=== PATIENT | female | born 1990 | race Caucasian/White ===

== ENCOUNTER 2018-05-23 13:44 | Inpatient (IN) | payer MEDICARE ==
[~2018-05-23] VITALS: Ht 157.5 cm; Wt 66.7 kg
[~2018-05-23 13:44] MED LIST: ARIP10TA8 PO; VENL-68 PO
[2018-05-23 15:04] VITALS: BP 103/66
[2018-05-23] MEDS ORDERED: DIVA-78 PO (16:22)
[2018-05-23] MEDS ORDERED: SERT50TA12 PO (16:22)
[2018-05-23 17:32] VITALS: BP 133/95
[2018-05-23] MEDS ORDERED: GuaiFENesin/D-METHORPHAN [SUGAR-FREE] 200-20MG/10 ML SYRUP UDCUP PO PRN (19:30)
[2018-05-23] MEDS ORDERED: MAG HYDROX/AL HYDROX/SIMETH ES 30 ML SUSPENSION UDCUP PO PRN (19:30)
[2018-05-23] MEDS ORDERED: ONDANSETRON HCL 4 MG TABLET PO PRN (19:30)
[2018-05-23] MEDS ORDERED: ACETAMINOPHEN 325 MG TABLET PO PRN (19:30)
[2018-05-23] MEDS ORDERED: LOPERAMIDE HCL 2 MG CAPSULE PO PRN (19:30)
[2018-05-23] MEDS ORDERED: DOCUSATE SODIUM 100 MG CAPSULE PO PRN (19:30)
[2018-05-23] MEDS ORDERED: MAGNESIUM HYDROXIDE SUSPENSION 30 ML UDCUP PO PRN (19:30)
[2018-05-23] MEDS ORDERED: CloNIDine HCL 0.1 MG TABLET PO PRN (19:30)
[2018-05-23] MEDS ORDERED: ALBUTEROL SULFATE HFA 90 MCG/PUFF 8 GM INHALER IH PRN (19:30)
[2018-05-23] MEDS ORDERED: PETROLATUM,WHITE 71 GM JELLY TP PRN (19:30)
[2018-05-23] MEDS ORDERED: IBUPROFEN 400 MG TABLET PO PRN (19:30)
[2018-05-23] MEDS ORDERED: DIVALPROEX SODIUM 500 MG DR TABLET PO SCH (21:00)
[2018-05-24 05:15] VITALS: BP 103/70
[2018-05-24 08:34] LABS: BASOPHILS % (AUTO) 0.8 % (0.0-2.0); EOSINOPHILS % (AUTO) 4.8 % (1.0-6.0); HEMATOCRIT 36.1 % (36-46); HEMOGLOBIN 12.4 g/dL (12.0-16.0); LYMPHOCYTES # (AUTO) 1.6 K/uL (1.0-4.8); LYMPHOCYTES % (AUTO) 30.1 % (22.0-44.0); MEAN CORPUSCULAR HEMOGLOBIN 29.9 pg (26.0-34.0); MEAN CORPUSCULAR HGB CONC 34.3 G/dL (31.0-37.0); MEAN CORPUSCULAR VOLUME 87 fL (80-100); MONOCYTES # (AUTO) 0.3 K/uL (0.1-1.0); NEUTROPHILS # (AUTO) 3.1 K/uL (1.8-7.7); NEUTROPHILS % (AUTO) 59.3 % (40.0-70.0); PLATELET COUNT (AUTO) 248 K/uL (150-450); RED BLOOD CELL COUNT(AUTO) 4.14 MIL/uL (4.00-5.20); RED CELL DISTRIBUTION WIDTH 12.3 % (11.5-14.5)
[2018-05-24 08:48] LABS: AMPHET/METH SCREEN,URINE NEGATIVE (NEGATIVE); BARBITURATE SCREEN, URINE NEGATIVE (NEGATIVE); BENZODIAZEPINES SCREEN,URINE NEGATIVE (NEGATIVE); CANNABINOID SCREEN,URINE NEGATIVE (NEGATIVE); COCAINE SCREEN,URINE NEGATIVE (NEGATIVE); METHADONE SCREEN, URINE NEGATIVE (NEGATIVE); OPIATE SCREEN,URINE NEGATIVE (NEGATIVE)
[2018-05-24 08:50] LABS: PHENCYCLIDINE SCREEN,URINE NEGATIVE (NEGATIVE)
[2018-05-24 08:53] LABS: APPEARANCE,URINE CLEAR (CLEAR); BILIRUBIN,URINE NEGATIVE (NEGATIVE); GLUCOSE, URINE (UA) NEGATIVE (NEGATIVE); KETONES,URINE NEGATIVE (NEGATIVE); LEUKOCYTE ESTERASE ,URINE NEGATIVE (NEGATIVE); NITRATE,URINE NEGATIVE (NEGATIVE); OCCULT BLOOD,URINE LARGE (NEGATIVE); PROTEIN,URINE NEGATIVE (NEGATIVE); UROBILINOGEN,URINE 0.2 mg/dL (<=1.0)
[2018-05-24 09:00] LABS: ALANINE AMINOTRANSFERASE 18 U/L (12-78); ALBUMIN 3.7 g/dL (3.4-5.0); ALKALINE PHOSPHATASE 59 U/L (46-116); ANION GAP 6 mmol/L (8-16); ASPARTATE AMINOTRANSFERASE 15 U/L (15-37); BILIRUBIN,TOTAL 0.4 mg/dL (0.1-1.0); CALCIUM, TOTAL 8.6 mg/dL (8.8-10.5); CARBON DIOXIDE 30 mmol/L (22-29); CHLORIDE 107 mmol/L (98-107); CHOL/HDL RATIO 2.8 (3.9-5.7); CHOLESTEROL 185 mg/dL (131-200); CREATININE 0.69 mg/dL (0.60-1.30); FREE T4 (FREE THYROXINE) 0.84 ng/dL (0.76-1.46); GLOMERULAR FILTR. RATE CALC > 60 mL/min (>60); GLUCOSE,RANDOM 81 mg/dL (70-110); HDL CHOLESTEROL 67 mg/dL (40-60); LDL CHOL (CALC.) 102 mg/dL (0-130); POTASSIUM 4.6 mmol/L (3.5-5.1); SODIUM SERUM 143 mmol/L (136-145); THYROID STIMULATING HORMONE 1.96 uIU/mL (0.36-3.74); TOTAL PROTEIN, SERUM 6.7 g/dL (6.4-8.2); TRIGLYCERIDES 80 mg/dL (15-150); UREA NITROGEN, BLOOD 11 mg/dL (7-18)
[2018-05-24 09:07] LABS: BACTERIA,URINE Rare /HPF (None Seen); SQUAMOUS EPITHELIAL CELL,UR Few /LPF (None Seen); WBC,URINE 0-2 /HPF (0-5)
[2018-05-24] MEDS: SERTRALINE HCL 50 MG TABLET PO SCH (09:38)
[2018-05-24] MEDS ORDERED: DIVALPROEX SODIUM 500 MG DR TABLET PO ONE (10:15)
[2018-05-24 16:39] VITALS: BP 111/72
[2018-05-24] MEDS: DIVALPROEX SODIUM 500 MG DR TABLET PO SCH (20:53)
[2018-05-25 06:40] VITALS: BP 121/76
[2018-05-25 08:20] VITALS: BP 100/57
[2018-05-25] MEDS: DIVALPROEX SODIUM 500 MG DR TABLET PO SCH ×2 (09:13→20:38)
[2018-05-25] MEDS: SERTRALINE HCL 50 MG TABLET PO SCH (09:14)
[2018-05-25 16:12] VITALS: BP 119/61
[2018-05-26 05:40] VITALS: BP 117/65
[2018-05-26 08:19] VITALS: BP 105/72
[2018-05-26] MEDS: DIVALPROEX SODIUM 500 MG DR TABLET PO SCH ×2 (08:42→21:06)
[2018-05-26] MEDS: SERTRALINE HCL 50 MG TABLET PO SCH (08:43)
[2018-05-26 16:11] VITALS: BP 109/69
[2018-05-27 04:57] VITALS: BP 112/74
[2018-05-27 08:15] VITALS: BP 121/78
[2018-05-27] MEDS: SERTRALINE HCL 50 MG TABLET PO SCH (09:19)
[2018-05-27] MEDS: DIVALPROEX SODIUM 500 MG DR TABLET PO SCH ×2 (09:20→21:43)
[2018-05-27 18:42] VITALS: BP 120/69
[2018-05-28 07:10] VITALS: BP 125/76
[2018-05-28 08:23] VITALS: BP 112/64
[2018-05-28] MEDS: DIVALPROEX SODIUM 500 MG DR TABLET PO SCH ×2 (09:03→21:35)
[2018-05-28] MEDS: SERTRALINE HCL 50 MG TABLET PO SCH (09:03)
[2018-05-28 18:09] VITALS: BP 117/73
[2018-05-29 07:03] VITALS: BP 125/72
[2018-05-29 08:24] VITALS: BP 123/81
[2018-05-29] MEDS: DIVALPROEX SODIUM 500 MG DR TABLET PO SCH ×2 (08:48→20:33)
[2018-05-29] MEDS: SERTRALINE HCL 50 MG TABLET PO SCH (08:48)
[2018-05-29 16:23] VITALS: BP 119/70
[2018-05-30 05:09] VITALS: BP 116/72
[2018-05-30 08:11] VITALS: BP 118/71
[2018-05-30] MEDS: DIVALPROEX SODIUM 500 MG DR TABLET PO SCH ×2 (08:40→20:01)
[2018-05-30] MEDS: SERTRALINE HCL 50 MG TABLET PO SCH (08:41)
[2018-05-30 16:12] VITALS: BP 122/73
[2018-05-31 06:22] VITALS: BP 109/68
[2018-05-31 08:16] VITALS: BP 116/79
[2018-05-31] MEDS: SERTRALINE HCL 50 MG TABLET PO SCH (09:02)
[2018-05-31] MEDS: DIVALPROEX SODIUM 500 MG DR TABLET PO SCH ×2 (09:02→20:33)
[2018-05-31 16:34] VITALS: BP 109/74
[2018-06-01 04:30] VITALS: BP 132/91
[2018-06-01 08:26] VITALS: BP 105/60
[2018-06-01] MEDS: DIVALPROEX SODIUM 500 MG DR TABLET PO SCH ×2 (08:49→20:21)
[2018-06-01] MEDS: SERTRALINE HCL 50 MG TABLET PO SCH (08:49)
[2018-06-01 16:16] VITALS: BP 114/71
[2018-06-02 06:24] VITALS: BP 110/68
[2018-06-02 08:23] VITALS: BP 109/59
[2018-06-02] MEDS: SERTRALINE HCL 50 MG TABLET PO SCH (08:32)
[2018-06-02] MEDS: DIVALPROEX SODIUM 500 MG DR TABLET PO SCH ×2 (08:32→21:23)
[2018-06-02 16:08] VITALS: BP 110/64
[2018-06-02] MEDS: LORazepam 2 MG TABLET PO PRN (17:51)
[2018-06-02] MEDS: HALOPERIDOL 5 MG TABLET PO PRN (17:51)
[2018-06-02] MEDS: ZOLPIDEM TARTRATE 10 MG TABLET PO PRN (21:23)
[2018-06-03 06:13] VITALS: BP 117/62
[2018-06-03 08:23] VITALS: BP 103/67
[2018-06-03] MEDS: DIVALPROEX SODIUM 500 MG DR TABLET PO SCH ×2 (08:54→20:37)
[2018-06-03] MEDS: SERTRALINE HCL 50 MG TABLET PO SCH (08:54)
[2018-06-03] MEDS: LORazepam 2 MG TABLET PO PRN ×2 (08:54→17:05)
[2018-06-03 17:23] VITALS: BP 121/76
[2018-06-03] MEDS: ZOLPIDEM TARTRATE 10 MG TABLET PO PRN (20:43)
[2018-06-04 06:28] VITALS: BP 110/76
[2018-06-04 08:21] VITALS: BP 101/66
[2018-06-04] MEDS: SERTRALINE HCL 50 MG TABLET PO SCH (09:13)
[2018-06-04] MEDS: DIVALPROEX SODIUM 500 MG DR TABLET PO SCH ×2 (09:13→21:02)
[2018-06-04] MEDS: LORazepam 2 MG TABLET PO PRN (09:13)
[2018-06-04] MEDS: HALOPERIDOL 5 MG TABLET PO PRN (09:13)
[2018-06-04] MEDS ORDERED: SERT50TA12 PO (13:21)
[2018-06-04] MEDS ORDERED: DIVA-78 PO (13:21)
[2018-06-04 16:30] VITALS: BP 111/71
[2018-06-05 00:46] VITALS: BP 102/62
[2018-06-05 08:14] VITALS: BP 121/79
[2018-06-05] MEDS: DIVALPROEX SODIUM 500 MG DR TABLET PO SCH (08:26)
[2018-06-05] MEDS: SERTRALINE HCL 50 MG TABLET PO SCH (08:26)
[2018-06-05] MEDS: LORazepam 2 MG TABLET PO PRN (08:30)
== END 2018-06-05 10:25 | disposition home or self-care (01) | DRG 885 ==
LOC: B3A 15:23
PROVIDERS: ADMIT Psychiatry & Neurology Child & Adolescent Psychiatry; ATTEND Psychiatry & Neurology Child & Adolescent Psychiatry
DX: F25.0 Schizoaffective disorder, bipolar type (principal); Z28.21 Immunization not carried out because of patient refusal; Z87.820 Personal history of traumatic brain injury; G40.909 Epilepsy, unspecified, not intractable, without status epilepticus; E66.9 Obesity, unspecified; G47.00 Insomnia, unspecified; F41.9 Anxiety disorder, unspecified; Z91.14 Patient's other noncompliance with medication regimen
CPT/HCPCS: 80307; 83036; 84439; 84443

== ENCOUNTER 2018-10-04 16:53 | Inpatient (IN) | payer MEDICARE, MEDICAID ==
[~2018-10-04] VITALS: Ht 157.5 cm; Wt 75.1 kg
[~2018-10-04 16:53] MED LIST changes: -ARIP10TA8 PO; +DIVA-78 PO; +SERT50TA12 PO; -VENL-68 PO
[2018-10-04 18:03] VITALS: BP 115/77
[2018-10-04] MEDS ORDERED: LORazepam 2 MG TABLET PO PRN (18:45)
[2018-10-04] MEDS ORDERED: ZOLPIDEM TARTRATE 10 MG TABLET PO PRN (18:45)
[2018-10-04] MEDS ORDERED: HALOPERIDOL 5 MG TABLET PO PRN (18:45)
[2018-10-04 19:19] VITALS: BP 117/63
[2018-10-04] MEDS ORDERED: LOPERAMIDE HCL 2 MG CAPSULE PO PRN (20:00)
[2018-10-04] MEDS ORDERED: ACETAMINOPHEN 325 MG TABLET PO PRN (20:00)
[2018-10-04] MEDS ORDERED: CloNIDine HCL 0.1 MG TABLET PO PRN (20:00)
[2018-10-04] MEDS ORDERED: IBUPROFEN 400 MG TABLET PO PRN (20:00)
[2018-10-04] MEDS ORDERED: PETROLATUM,WHITE 28 GM JELLY TP PRN (20:00)
[2018-10-04] MEDS ORDERED: GuaiFENesin/D-METHORPHAN [SUGAR-FREE] 200-20MG/10 ML SYRUP UDCUP PO PRN (20:00)
[2018-10-04] MEDS ORDERED: NICOTINE 14 MG/24 HOUR PATCH TD PRN (20:00)
[2018-10-04] MEDS ORDERED: ALBUTEROL SULFATE HFA 90 MCG/PUFF 8 GM INHALER IH PRN (20:00)
[2018-10-04] MEDS ORDERED: MAGNESIUM HYDROXIDE SUSPENSION 30 ML UDCUP PO PRN (20:00)
[2018-10-04] MEDS ORDERED: MAG HYDROX/AL HYDROX/SIMETH ES 30 ML SUSPENSION UDCUP PO PRN (20:00)
[2018-10-04] MEDS ORDERED: ONDANSETRON HCL 4 MG TABLET PO PRN (20:00)
[2018-10-04] MEDS ORDERED: DOCUSATE SODIUM 100 MG CAPSULE PO PRN (20:00)
[2018-10-05 06:06] VITALS: BP 108/78
[2018-10-05 07:07] LABS: BASOPHILS % (AUTO) 0.7 % (0.0-2.0); EOSINOPHILS % (AUTO) 6.9 % (1.0-6.0); HEMATOCRIT 36.2 % (36-46); HEMOGLOBIN 11.8 g/dL (12.0-16.0); LYMPHOCYTES # (AUTO) 2.3 K/uL (1.0-4.8); LYMPHOCYTES % (AUTO) 39.6 % (22.0-44.0); MEAN CORPUSCULAR HEMOGLOBIN 27.7 pg (26.0-34.0); MEAN CORPUSCULAR HGB CONC 32.6 G/dL (31.0-37.0); MEAN CORPUSCULAR VOLUME 85 fL (80-100); MONOCYTES # (AUTO) 0.3 K/uL (0.1-1.0); MONOCYTES % (AUTO) 5.2 % (2.0-9.0); NEUTROPHILS # (AUTO) 2.8 K/uL (1.8-7.7); NEUTROPHILS % (AUTO) 47.6 % (40.0-70.0); PLATELET COUNT (AUTO) 244 K/uL (150-450); RED BLOOD CELL COUNT(AUTO) 4.26 MIL/uL (4.00-5.20); RED CELL DISTRIBUTION WIDTH 12.6 % (11.5-14.5)
[2018-10-05 08:06] VITALS: BP 108/64
[2018-10-05 08:06] LABS: ALANINE AMINOTRANSFERASE 14 U/L (12-78); ALBUMIN 3.3 g/dL (3.4-5.0); ALKALINE PHOSPHATASE 70 U/L (46-116); ANION GAP 10 mmol/L (8-16); ASPARTATE AMINOTRANSFERASE 13 U/L (15-37); BILIRUBIN,TOTAL 0.3 mg/dL (0.1-1.0); CALCIUM, TOTAL 8.9 mg/dL (8.8-10.5); CARBON DIOXIDE 26 mmol/L (22-29); CHLORIDE 105 mmol/L (98-107); CHOL/HDL RATIO 2.9 (3.9-5.7); CHOLESTEROL 175 mg/dL (131-200); FREE T4 (FREE THYROXINE) 0.76 ng/dL (0.76-1.46); GLOMERULAR FILTR. RATE CALC > 60 mL/min (>60); GLUCOSE,RANDOM 80 mg/dL (70-110); HCG,QUANTITATIVE < 1 mIU/mL (0-6); HDL CHOLESTEROL 60 mg/dL (40-60); LDL CHOL (CALC.) 95 mg/dL (0-130); POTASSIUM 4.3 mmol/L (3.5-5.1); SODIUM SERUM 141 mmol/L (136-145); THYROID STIMULATING HORMONE 1.41 uIU/mL (0.36-3.74); TOTAL PROTEIN, SERUM 6.2 g/dL (6.4-8.2); TRIGLYCERIDES 98 mg/dL (15-150); UREA NITROGEN, BLOOD 10 mg/dL (7-18)
[2018-10-05 08:07] LABS: VALPROIC ACID < 3 mcg/mL (50-100)
[2018-10-05] MEDS: SERTRALINE HCL 100 MG TABLET PO SCH (08:50)
[2018-10-05] MEDS: DIVALPROEX SODIUM 500 MG ER TABLET PO SCH ×2 (08:50→16:42)
[2018-10-05 16:07] VITALS: BP 123/69
[2018-10-06 05:10] VITALS: BP 120/72
[2018-10-06 08:13] LABS: AMPHET/METH SCREEN,URINE NEGATIVE (NEGATIVE); BARBITURATE SCREEN, URINE NEGATIVE (NEGATIVE); BENZODIAZEPINES SCREEN,URINE NEGATIVE (NEGATIVE); CANNABINOID SCREEN,URINE NEGATIVE (NEGATIVE); COCAINE SCREEN,URINE NEGATIVE (NEGATIVE); METHADONE SCREEN, URINE NEGATIVE (NEGATIVE); OPIATE SCREEN,URINE NEGATIVE (NEGATIVE)
[2018-10-06 08:18] VITALS: BP 119/68
[2018-10-06 08:30] LABS: PHENCYCLIDINE SCREEN,URINE NEGATIVE (NEGATIVE)
[2018-10-06 08:40] LABS: APPEARANCE,URINE CLEAR (CLEAR); BILIRUBIN,URINE NEGATIVE (NEGATIVE); GLUCOSE, URINE (UA) NEGATIVE (NEGATIVE); KETONES,URINE NEGATIVE (NEGATIVE); LEUKOCYTE ESTERASE ,URINE SMALL (NEGATIVE); NITRATE,URINE NEGATIVE (NEGATIVE); OCCULT BLOOD,URINE NEGATIVE (NEGATIVE); PROTEIN,URINE NEGATIVE (NEGATIVE); UROBILINOGEN,URINE 0.2 mg/dL (<=1.0)
[2018-10-06] MEDS: SERTRALINE HCL 100 MG TABLET PO SCH (08:50)
[2018-10-06] MEDS: DIVALPROEX SODIUM 500 MG ER TABLET PO SCH ×2 (08:50→16:16)
[2018-10-06 09:03] LABS: BACTERIA,URINE Rare /HPF (None Seen); CALCIUM OXALATE CRYSTALS,UR Moderate /LPF (None Seen); RBC,URINE None Seen /HPF (0-2); SQUAMOUS EPITHELIAL CELL,UR Rare /LPF (None Seen); WBC,URINE 0-2 /HPF (0-5)
[2018-10-06 16:03] VITALS: BP 107/65
[2018-10-07 08:13] VITALS: BP 105/60
[2018-10-07] MEDS: DIVALPROEX SODIUM 500 MG ER TABLET PO SCH ×2 (08:31→16:32)
[2018-10-07] MEDS: SERTRALINE HCL 100 MG TABLET PO SCH (08:31)
[2018-10-07 16:07] VITALS: BP 112/60
[2018-10-08 00:29] VITALS: BP 102/60
[2018-10-08 08:20] VITALS: BP 109/75
[2018-10-08] MEDS: DIVALPROEX SODIUM 500 MG ER TABLET PO SCH ×2 (08:26→16:29)
[2018-10-08] MEDS: SERTRALINE HCL 100 MG TABLET PO SCH (08:26)
[2018-10-08 16:12] VITALS: BP 110/75
[2018-10-09 00:10] VITALS: BP 107/69
[2018-10-09 08:15] VITALS: BP_SYST 109; BP_DIAS 6; BP_DIAS 68
[2018-10-09] MEDS: SERTRALINE HCL 100 MG TABLET PO SCH (08:22)
[2018-10-09] MEDS: DIVALPROEX SODIUM 500 MG ER TABLET PO SCH ×2 (08:22→16:33)
[2018-10-09] MEDS: FERROUS SULFATE 325 MG EC TABLET PO SCH ×2 (08:22→16:33)
[2018-10-09] MEDS ORDERED: FERR-89 PO (09:38)
[2018-10-09 16:25] VITALS: BP 100/62
[2018-10-10 05:48] VITALS: BP 104/63
[2018-10-10 08:13] VITALS: BP 106/69
[2018-10-10] MEDS: FERROUS SULFATE 325 MG EC TABLET PO SCH ×2 (08:24→16:37)
[2018-10-10] MEDS: DIVALPROEX SODIUM 500 MG ER TABLET PO SCH ×2 (08:24→16:37)
[2018-10-10] MEDS: SERTRALINE HCL 100 MG TABLET PO SCH (08:24)
[2018-10-10 16:03] VITALS: BP 128/68
[2018-10-11 05:41] VITALS: BP 104/67
[2018-10-11] MEDS: FERROUS SULFATE 325 MG EC TABLET PO SCH ×2 (08:07→16:25)
[2018-10-11] MEDS: DIVALPROEX SODIUM 500 MG ER TABLET PO SCH ×2 (08:07→16:25)
[2018-10-11] MEDS: SERTRALINE HCL 100 MG TABLET PO SCH (08:07)
[2018-10-11 08:17] VITALS: BP 120/70
[2018-10-11 16:11] VITALS: BP 107/70
[2018-10-11] MEDS: PALIPERIDONE 3 MG ER TABLET PO SCH (20:12)
[2018-10-12 06:20] VITALS: BP 110/77
[2018-10-12 08:06] VITALS: BP 120/66
[2018-10-12] MEDS: DIVALPROEX SODIUM 500 MG ER TABLET PO SCH ×2 (08:45→16:27)
[2018-10-12] MEDS: FERROUS SULFATE 325 MG EC TABLET PO SCH ×2 (08:46→16:27)
[2018-10-12] MEDS: SERTRALINE HCL 100 MG TABLET PO SCH (08:46)
[2018-10-12 17:20] VITALS: BP 112/76
[2018-10-12] MEDS: PALIPERIDONE 3 MG ER TABLET PO SCH (20:13)
[2018-10-13 04:20] VITALS: BP 129/62
[2018-10-13] MEDS: FERROUS SULFATE 325 MG EC TABLET PO SCH ×2 (08:24→16:30)
[2018-10-13] MEDS: SERTRALINE HCL 100 MG TABLET PO SCH (08:24)
[2018-10-13] MEDS: DIVALPROEX SODIUM 500 MG ER TABLET PO SCH ×2 (08:24→16:30)
[2018-10-13 08:48] VITALS: BP 108/61
[2018-10-13 16:13] VITALS: BP 109/64
[2018-10-13] MEDS: PALIPERIDONE 3 MG ER TABLET PO SCH (20:29)
[2018-10-14 02:26] VITALS: BP 110/74
[2018-10-14] MEDS: FERROUS SULFATE 325 MG EC TABLET PO SCH ×2 (08:49→16:28)
[2018-10-14] MEDS: SERTRALINE HCL 100 MG TABLET PO SCH (08:49)
[2018-10-14] MEDS: DIVALPROEX SODIUM 500 MG ER TABLET PO SCH ×2 (08:49→16:28)
[2018-10-14 11:13] VITALS: BP 110/60
[2018-10-14 16:22] VITALS: BP 112/73
[2018-10-14] MEDS ORDERED: PALIPERIDONE 6 MG ER TABLET PO SCH (21:00)
[2018-10-15 06:19] VITALS: BP 119/68
[2018-10-15] MEDS: SERTRALINE HCL 100 MG TABLET PO SCH (08:25)
[2018-10-15] MEDS: DIVALPROEX SODIUM 500 MG ER TABLET PO SCH ×2 (08:25→16:37)
[2018-10-15] MEDS: FERROUS SULFATE 325 MG EC TABLET PO SCH ×2 (08:25→16:37)
[2018-10-15 08:39] VITALS: BP 99/58
[2018-10-15 16:42] VITALS: BP 106/56
[2018-10-15] MEDS: PALIPERIDONE 3 MG ER TABLET PO SCH (20:53)
[2018-10-16 01:55] VITALS: BP 103/62
[2018-10-16] MEDS: DIVALPROEX SODIUM 500 MG ER TABLET PO SCH ×2 (08:19→16:47)
[2018-10-16] MEDS: SERTRALINE HCL 100 MG TABLET PO SCH (08:19)
[2018-10-16] MEDS: FERROUS SULFATE 325 MG EC TABLET PO SCH ×2 (08:19→16:47)
[2018-10-16 09:46] VITALS: BP 111/60
[2018-10-16 16:12] VITALS: BP 135/78
[2018-10-16] MEDS: PALIPERIDONE 3 MG ER TABLET PO SCH (20:37)
[2018-10-17 00:35] VITALS: BP 110/67
[2018-10-17 08:15] VITALS: BP 110/56
[2018-10-17] MEDS: DIVALPROEX SODIUM 500 MG ER TABLET PO SCH ×2 (08:35→16:31)
[2018-10-17] MEDS: FERROUS SULFATE 325 MG EC TABLET PO SCH ×2 (08:35→16:31)
[2018-10-17] MEDS: SERTRALINE HCL 100 MG TABLET PO SCH (08:35)
[2018-10-17 16:05] VITALS: BP 138/60
[2018-10-17] MEDS ORDERED: PALIPERIDONE 6 MG ER TABLET PO SCH (21:00)
[2018-10-18] MEDS: FERROUS SULFATE 325 MG EC TABLET PO SCH ×2 (06:55→16:44)
[2018-10-18 08:18] VITALS: BP 101/6
[2018-10-18] MEDS: SERTRALINE HCL 100 MG TABLET PO SCH (08:23)
[2018-10-18] MEDS: DIVALPROEX SODIUM 500 MG ER TABLET PO SCH ×2 (08:23→20:31)
[2018-10-18] MEDS ORDERED: PALIPERIDONE PALMITATE 234 MG/1.5 ML SYRINGE IM ONE (16:00)
[2018-10-18 16:08] VITALS: BP 106/68
[2018-10-19 00:04] VITALS: BP 100/60
[2018-10-19] MEDS: FERROUS SULFATE 325 MG EC TABLET PO SCH ×2 (06:28→16:34)
[2018-10-19 08:17] VITALS: BP 116/88
[2018-10-19] MEDS: SERTRALINE HCL 100 MG TABLET PO SCH (08:23)
[2018-10-19 16:06] VITALS: BP 120/74
[2018-10-19] MEDS: DIVALPROEX SODIUM 500 MG ER TABLET PO SCH (20:03)
[2018-10-20 00:14] VITALS: BP 100/62
[2018-10-20] MEDS: FERROUS SULFATE 325 MG EC TABLET PO SCH ×2 (06:04→16:34)
[2018-10-20 08:14] VITALS: BP 100/63
[2018-10-20] MEDS: SERTRALINE HCL 100 MG TABLET PO SCH (08:16)
[2018-10-20 16:30] VITALS: BP 110/69
[2018-10-20] MEDS: DIVALPROEX SODIUM 500 MG ER TABLET PO SCH (20:34)
[2018-10-21 00:49] VITALS: BP 98/62
[2018-10-21] MEDS: FERROUS SULFATE 325 MG EC TABLET PO SCH ×2 (06:23→16:56)
[2018-10-21] MEDS: SERTRALINE HCL 100 MG TABLET PO SCH (08:14)
[2018-10-21 17:47] VITALS: BP 116/62
[2018-10-21] MEDS: DIVALPROEX SODIUM 500 MG ER TABLET PO SCH (20:04)
[2018-10-22] VITALS: BP 100/61
[2018-10-22] MEDS: FERROUS SULFATE 325 MG EC TABLET PO SCH ×2 (07:05→16:27)
[2018-10-22 08:00] VITALS: BP 112/69
[2018-10-22] MEDS: SERTRALINE HCL 100 MG TABLET PO SCH (08:22)
[2018-10-22 16:04] VITALS: BP 100/62
[2018-10-22] MEDS: DIVALPROEX SODIUM 500 MG ER TABLET PO SCH (20:34)
[2018-10-23 04:59] VITALS: BP 105/66
[2018-10-23] MEDS: FERROUS SULFATE 325 MG EC TABLET PO SCH (07:06)
[2018-10-23 08:12] VITALS: BP 100/60
[2018-10-23] MEDS: SERTRALINE HCL 100 MG TABLET PO SCH (08:34)
[2018-10-23] MEDS ORDERED: SERT100T12 PO (10:43)
[2018-10-23] MEDS ORDERED: FERR-89 PO (10:43)
[2018-10-23 16:00] VITALS: BP 106/68
== END 2018-10-23 18:07 | disposition home or self-care (01) | DRG 885 ==
LOC: B2X 18:36
PROVIDERS: ADMIT Psychiatry & Neurology Psychiatry; ATTEND Psychiatry & Neurology Psychiatry
DX: F25.1 Schizoaffective disorder, depressive type (principal); R45.851 Suicidal ideations; X58.XXXA Exposure to other specified factors, initial encounter; G47.00 Insomnia, unspecified; G40.909 Epilepsy, unspecified, not intractable, without status epilepticus; F41.9 Anxiety disorder, unspecified; E66.9 Obesity, unspecified; K59.00 Constipation, unspecified; R45.87 Impulsiveness; R45.850 Homicidal ideations; R40.0 Somnolence; S06.9X0A Unspecified intracranial injury without loss of consciousness, initial encounter; Y92.89 Other specified places as the place of occurrence of the external cause; Z87.820 Personal history of traumatic brain injury; Y93.89 Activity, other specified; Z79.899 Other long term (current) drug therapy; Y99.8 Other external cause status; Z91.19 Patient's noncompliance with other medical treatment and regimen; Z68.30 Body mass index [BMI] 30.0-30.9, adult; Z23 Encounter for immunization
CPT/HCPCS: 80307; 83036; 84439; 84443; 90686

== ENCOUNTER 2019-04-14 17:51 | Inpatient (IN) | payer MEDICARE, MEDICAID, OTHER ==
[~2019-04-14] VITALS: Ht 157.5 cm; Wt 78.9 kg
[~2019-04-14 17:51] MED LIST changes: +FERR-89 PO; +SERT100T12 PO; -SERT50TA12 PO
[2019-04-14 19:09] VITALS: BP 108/59
[2019-04-14] MEDS ORDERED: PALI234D IM (19:19)
[2019-04-14] MEDS ORDERED: LORazepam 2 MG TABLET PO PRN (19:45)
[2019-04-14] MEDS ORDERED: ZOLPIDEM TARTRATE 10 MG TABLET PO PRN (19:45)
[2019-04-14] MEDS ORDERED: ACETAMINOPHEN 325 MG TABLET PO PRN ×2 (19:45→22:00)
[2019-04-14 21:10] VITALS: BP 119/79
[2019-04-14] MEDS ORDERED: LOPERAMIDE HCL 2 MG CAPSULE PO PRN (22:00)
[2019-04-14] MEDS ORDERED: GuaiFENesin/D-METHORPHAN [SUGAR-FREE] 200-20MG/10 ML SYRUP UDCUP PO PRN (22:00)
[2019-04-14] MEDS ORDERED: CloNIDine HCL 0.1 MG TABLET PO PRN (22:00)
[2019-04-14] MEDS ORDERED: PETROLATUM,WHITE 28 GM JELLY TP PRN (22:00)
[2019-04-14] MEDS ORDERED: MAG HYDROX/AL HYDROX/SIMETH ES 30 ML SUSPENSION UDCUP PO PRN (22:00)
[2019-04-14] MEDS ORDERED: MAGNESIUM HYDROXIDE SUSPENSION 30 ML UDCUP PO PRN (22:00)
[2019-04-14] MEDS ORDERED: DOCUSATE SODIUM 100 MG CAPSULE PO PRN (22:00)
[2019-04-14] MEDS ORDERED: IBUPROFEN 400 MG TABLET PO PRN (22:00)
[2019-04-14] MEDS ORDERED: NICOTINE 14 MG/24 HOUR PATCH TD PRN (22:00)
[2019-04-14] MEDS ORDERED: ALBUTEROL SULFATE HFA 90 MCG/PUFF 8 GM INHALER IH PRN (22:00)
[2019-04-14] MEDS ORDERED: ONDANSETRON HCL 4 MG TABLET PO PRN (22:00)
[2019-04-15 05:22] VITALS: BP 124/71
[2019-04-15] MEDS: FERROUS SULFATE 325 MG EC TABLET PO SCH ×2 (06:37→17:07)
[2019-04-15 07:56] LABS: BASOPHILS % (AUTO) 0.5 % (0.0-2.0); EOSINOPHILS % (AUTO) 1.7 % (1.0-6.0); HEMATOCRIT 35.4 % (36-46); HEMOGLOBIN 11.7 g/dL (12.0-16.0); LYMPHOCYTES # (AUTO) 2.7 K/uL (1.0-4.8); LYMPHOCYTES % (AUTO) 35.8 % (22.0-44.0); MEAN CORPUSCULAR HGB CONC 33.2 G/dL (31.0-37.0); MEAN CORPUSCULAR VOLUME 85 fL (80-100); MONOCYTES # (AUTO) 0.3 K/uL (0.1-1.0); MONOCYTES % (AUTO) 4.3 % (2.0-9.0); NEUTROPHILS # (AUTO) 4.3 K/uL (1.8-7.7); NEUTROPHILS % (AUTO) 57.7 % (40.0-70.0); PLATELET COUNT (AUTO) 218 K/uL (150-450); RED BLOOD CELL COUNT(AUTO) 4.19 MIL/uL (4.00-5.20); RED CELL DISTRIBUTION WIDTH 13.6 % (11.5-14.5)
[2019-04-15 08:09] LABS: HEMOGLOBIN A1C 4.9 % (4.5-6.2)
[2019-04-15 08:27] LABS: ALANINE AMINOTRANSFERASE 16 U/L (12-78); ALBUMIN 3.4 g/dL (3.4-5.0); ALKALINE PHOSPHATASE 67 U/L (46-116); ANION GAP 16 mmol/L (8-16); ASPARTATE AMINOTRANSFERASE 16 U/L (15-37); BILIRUBIN,TOTAL 0.4 mg/dL (0.1-1.0); CARBON DIOXIDE 25 mmol/L (22-29); CHLORIDE 103 mmol/L (98-107); CHOL/HDL RATIO 2.8 (3.9-5.7); CHOLESTEROL 175 mg/dL (131-200); CREATININE 0.66 mg/dL (0.60-1.30); GLOMERULAR FILTR. RATE CALC > 60 mL/min (>60); GLUCOSE,RANDOM 83 mg/dL (70-110); HCG,QUANTITATIVE < 1 mIU/mL (0-6); HDL CHOLESTEROL 63 mg/dL (40-60); LDL CHOL (CALC.) 99 mg/dL (0-130); POTASSIUM 3.8 mmol/L (3.5-5.1); SODIUM SERUM 144 mmol/L (136-145); THYROID STIMULATING HORMONE 2.16 uIU/mL (0.36-3.74); TOTAL PROTEIN, SERUM 6.8 g/dL (6.4-8.2); TRIGLYCERIDES 67 mg/dL (15-150); UREA NITROGEN, BLOOD 10 mg/dL (7-18)
[2019-04-15 08:28] LABS: VALPROIC ACID < 3 mcg/mL (50-100)
[2019-04-15 08:42] VITALS: BP 114/71
[2019-04-15] MEDS: SERTRALINE HCL 100 MG TABLET PO SCH (10:44)
[2019-04-15] MEDS: RisperiDONE 2 MG TABLET PO SCH ×2 (10:44→17:07)
[2019-04-15 16:18] VITALS: BP 115/71
[2019-04-15] MEDS: DIVALPROEX SODIUM 500 MG DR TABLET PO SCH (20:56)
[2019-04-16 00:15] VITALS: BP 130/68
[2019-04-16] MEDS: FERROUS SULFATE 325 MG EC TABLET PO SCH ×2 (06:43→16:11)
[2019-04-16 08:25] VITALS: BP 109/68
[2019-04-16] MEDS: SERTRALINE HCL 100 MG TABLET PO SCH (09:14)
[2019-04-16] MEDS: RisperiDONE 2 MG TABLET PO SCH ×2 (09:14→16:11)
[2019-04-16 16:09] VITALS: BP 106/67
[2019-04-16] MEDS: DIVALPROEX SODIUM 500 MG DR TABLET PO SCH (20:32)
[2019-04-17 06:12] VITALS: BP 115/69
[2019-04-17] MEDS: FERROUS SULFATE 325 MG EC TABLET PO SCH ×2 (06:42→16:05)
[2019-04-17 08:32] VITALS: BP 104/68
[2019-04-17] MEDS: RisperiDONE 2 MG TABLET PO SCH ×2 (09:13→16:05)
[2019-04-17] MEDS: SERTRALINE HCL 100 MG TABLET PO SCH (09:13)
[2019-04-17] MEDS ORDERED: PALIPERIDONE PALMITATE 234 MG/1.5 ML SYRINGE IM SCH (13:00)
[2019-04-17 16:07] VITALS: BP 115/66
[2019-04-17] MEDS: DIVALPROEX SODIUM 500 MG DR TABLET PO SCH (20:26)
[2019-04-18] VITALS: BP 103/67
[2019-04-18] MEDS: FERROUS SULFATE 325 MG EC TABLET PO SCH ×2 (06:24→16:21)
[2019-04-18 08:16] VITALS: BP 125/75
[2019-04-18] MEDS: RisperiDONE 2 MG TABLET PO SCH (08:42)
[2019-04-18] MEDS: SERTRALINE HCL 100 MG TABLET PO SCH (08:42)
[2019-04-18 16:10] VITALS: BP 108/72
[2019-04-18] MEDS: RisperiDONE 1 MG TABLET PO SCH (16:21)
[2019-04-18] MEDS: DIVALPROEX SODIUM 500 MG DR TABLET PO SCH (20:26)
[2019-04-19 06:45] VITALS: BP 115/73
[2019-04-19] MEDS: FERROUS SULFATE 325 MG EC TABLET PO SCH ×2 (07:21→16:11)
[2019-04-19 08:09] VITALS: BP 114/67
[2019-04-19] MEDS: SERTRALINE HCL 100 MG TABLET PO SCH (08:38)
[2019-04-19] MEDS: RisperiDONE 1 MG TABLET PO SCH ×2 (08:38→16:11)
[2019-04-19] MEDS: HYPROMELLOSE 0.5% 15 ML OPHTHALMIC SOLUTION OU PRN (12:47)
[2019-04-19 16:06] VITALS: BP 117/69
[2019-04-19] MEDS: DIVALPROEX SODIUM 500 MG DR TABLET PO SCH (21:12)
[2019-04-20 06:06] VITALS: BP 108/63
[2019-04-20] MEDS: FERROUS SULFATE 325 MG EC TABLET PO SCH ×2 (07:03→17:19)
[2019-04-20 08:11] VITALS: BP 109/65
[2019-04-20] MEDS: SERTRALINE HCL 100 MG TABLET PO SCH (09:23)
[2019-04-20] MEDS: RisperiDONE 1 MG TABLET PO SCH ×2 (09:23→17:19)
[2019-04-20 16:08] VITALS: BP 117/74
[2019-04-20] MEDS: DIVALPROEX SODIUM 500 MG DR TABLET PO SCH (21:10)
[2019-04-21 07:09] VITALS: BP 126/72
[2019-04-21] MEDS: FERROUS SULFATE 325 MG EC TABLET PO SCH ×2 (07:09→16:10)
[2019-04-21 08:22] VITALS: BP 106/62
[2019-04-21] MEDS: SERTRALINE HCL 100 MG TABLET PO SCH (08:39)
[2019-04-21] MEDS: RisperiDONE 1 MG TABLET PO SCH (08:39)
[2019-04-21 16:12] VITALS: BP 107/62
[2019-04-21] MEDS: DIVALPROEX SODIUM 500 MG DR TABLET PO SCH (20:29)
[2019-04-22] MEDS: FERROUS SULFATE 325 MG EC TABLET PO SCH ×2 (06:47→16:16)
[2019-04-22 07:11] VITALS: BP 110/68
[2019-04-22 08:34] VITALS: BP 106/65
[2019-04-22] MEDS: SERTRALINE HCL 100 MG TABLET PO SCH (09:01)
[2019-04-22 16:10] VITALS: BP 101/60
[2019-04-22] MEDS: DIVALPROEX SODIUM 500 MG DR TABLET PO SCH (20:10)
[2019-04-23 06:00] VITALS: BP 110/68
[2019-04-23] MEDS: FERROUS SULFATE 325 MG EC TABLET PO SCH ×2 (06:26→16:20)
[2019-04-23 08:10] VITALS: BP 107/68
[2019-04-23 08:25] VITALS: BP 107/68
[2019-04-23] MEDS: SERTRALINE HCL 100 MG TABLET PO SCH (08:42)
[2019-04-23 09:16] VITALS: BP 114/70
[2019-04-23 16:14] VITALS: BP 125/64
[2019-04-23] MEDS: DIVALPROEX SODIUM 500 MG DR TABLET PO SCH (21:06)
[2019-04-24 00:16] VITALS: BP 129/79
[2019-04-24] MEDS: FERROUS SULFATE 325 MG EC TABLET PO SCH ×2 (06:54→17:23)
[2019-04-24 08:29] VITALS: BP 107/74
[2019-04-24] MEDS: SERTRALINE HCL 100 MG TABLET PO SCH (08:45)
[2019-04-24] MEDS ORDERED: PALIPERIDONE PALMITATE 234 MG/1.5 ML SYRINGE IM ONE (11:45)
[2019-04-24 16:17] VITALS: BP 106/72
[2019-04-24] MEDS: DIVALPROEX SODIUM 500 MG DR TABLET PO SCH (20:38)
[2019-04-25 02:06] VITALS: BP 108/71
[2019-04-25] MEDS: FERROUS SULFATE 325 MG EC TABLET PO SCH ×2 (06:39→16:25)
[2019-04-25 08:27] VITALS: BP 104/62
[2019-04-25] MEDS: SERTRALINE HCL 100 MG TABLET PO SCH (08:45)
[2019-04-25] MEDS ORDERED: PALIPERIDONE PALMITATE 156 MG/ML SYRINGE IM ONE (10:30)
[2019-04-25 16:13] VITALS: BP 120/76
[2019-04-25] MEDS: DIVALPROEX SODIUM 500 MG DR TABLET PO SCH (20:17)
[2019-04-26 02:24] VITALS: BP 102/58
[2019-04-26] MEDS: FERROUS SULFATE 325 MG EC TABLET PO SCH ×2 (06:49→16:35)
[2019-04-26] MEDS: SERTRALINE HCL 100 MG TABLET PO SCH (08:37)
[2019-04-26 10:58] VITALS: BP 102/58
[2019-04-26] MEDS: HYPROMELLOSE 0.5% 15 ML OPHTHALMIC SOLUTION OU PRN (12:17)
[2019-04-26 16:21] VITALS: BP 103/66
[2019-04-26] MEDS: DIVALPROEX SODIUM 500 MG DR TABLET PO SCH (20:34)
[2019-04-27 06:31] VITALS: BP 100/60
[2019-04-27] MEDS: FERROUS SULFATE 325 MG EC TABLET PO SCH ×2 (06:47→16:37)
[2019-04-27] MEDS: SERTRALINE HCL 100 MG TABLET PO SCH (08:49)
[2019-04-27 09:06] VITALS: BP 122/68
[2019-04-27 16:13] VITALS: BP 108/57
[2019-04-27] MEDS: DIVALPROEX SODIUM 500 MG DR TABLET PO SCH (20:33)
[2019-04-28 00:30] VITALS: BP 113/76
[2019-04-28] MEDS: FERROUS SULFATE 325 MG EC TABLET PO SCH (06:51)
[2019-04-28 08:22] VITALS: BP 106/64
[2019-04-28] MEDS: SERTRALINE HCL 100 MG TABLET PO SCH (09:06)
== END 2019-04-28 16:00 | disposition home or self-care (01) | DRG 885 ==
LOC: B2X 19:37
PROVIDERS: ADMIT Psychiatry & Neurology Child & Adolescent Psychiatry; ATTEND Psychiatry & Neurology Child & Adolescent Psychiatry
DX: F25.1 Schizoaffective disorder, depressive type (principal); D64.9 Anemia, unspecified; E66.9 Obesity, unspecified; G40.909 Epilepsy, unspecified, not intractable, without status epilepticus; Z79.899 Other long term (current) drug therapy; Z68.31 Body mass index [BMI] 31.0-31.9, adult
CPT/HCPCS: 83036; 84443

== ENCOUNTER 2019-12-02 21:18 | Inpatient (IN) | payer MEDICARE, MEDICAID ==
[~2019-12-02 21:18] MED LIST changes: +PALI234D IM
[2019-12-02] MEDS ORDERED: ZOLPIDEM TARTRATE 10 MG TABLET PO PRN (23:15)
[2019-12-02] MEDS ORDERED: LORazepam 2 MG TABLET PO PRN (23:15)
[2019-12-02] MEDS ORDERED: HALOPERIDOL 5 MG TABLET PO PRN (23:15)
[2019-12-03 02:19] VITALS: BP 129/71
[2019-12-03 08:05] VITALS: BP 105/68
[2019-12-03 08:33] LABS: BASOPHILS % (AUTO) 0.6 % (0.0-2.0); EOSINOPHILS % (AUTO) 6.8 % (1.0-6.0); HEMATOCRIT 34.5 % (36-46); HEMOGLOBIN 11.5 g/dL (12.0-16.0); LYMPHOCYTES # (AUTO) 2.3 K/uL (1.0-4.8); LYMPHOCYTES % (AUTO) 38.8 % (22.0-44.0); MEAN CORPUSCULAR HEMOGLOBIN 27.2 pg (26.0-34.0); MEAN CORPUSCULAR HGB CONC 33.2 G/dL (31.0-37.0); MEAN CORPUSCULAR VOLUME 82 fL (80-100); MONOCYTES # (AUTO) 0.3 K/uL (0.1-1.0); MONOCYTES % (AUTO) 5.7 % (2.0-9.0); NEUTROPHILS # (AUTO) 2.8 K/uL (1.8-7.7); NEUTROPHILS % (AUTO) 48.1 % (40.0-70.0); PLATELET COUNT (AUTO) 298 K/uL (150-450); RED BLOOD CELL COUNT(AUTO) 4.21 MIL/uL (4.00-5.20); RED CELL DISTRIBUTION WIDTH 14.2 % (11.5-14.5)
[2019-12-03 09:09] LABS: ANION GAP 10 mmol/L (8-16); CARBON DIOXIDE 26 mmol/L (22-29); CHLORIDE 106 mmol/L (98-107); CREATININE 0.62 mg/dL (0.60-1.30); GLUCOSE,RANDOM 78 mg/dL (70-110); POTASSIUM 4.1 mmol/L (3.5-5.1); SODIUM SERUM 142 mmol/L (136-145); UREA NITROGEN, BLOOD 15 mg/dL (7-18)
[2019-12-03 09:10] LABS: ALANINE AMINOTRANSFERASE 20 U/L (12-78); ALBUMIN 3.4 g/dL (3.4-5.0); ALKALINE PHOSPHATASE 73 U/L (46-116); ASPARTATE AMINOTRANSFERASE 12 U/L (15-37); BILIRUBIN,TOTAL 0.3 mg/dL (0.1-1.0); CALCIUM, TOTAL 8.4 mg/dL (8.8-10.5); CHOL/HDL RATIO 3.2 (3.9-5.7); CHOLESTEROL 184 mg/dL (131-200); GLOMERULAR FILTR. RATE CALC > 60 mL/min (>60); HDL CHOLESTEROL 58 mg/dL (40-60); LDL CHOL (CALC.) 111 mg/dL (0-130); TOTAL PROTEIN, SERUM 6.9 g/dL (6.4-8.2); TRIGLYCERIDES 75 mg/dL (15-150)
[2019-12-03 09:42] LABS: VALPROIC ACID < 3 mcg/mL (50-100)
[2019-12-03] MEDS ORDERED: GuaiFENesin/D-METHORPHAN [SUGAR-FREE] 200-20MG/10 ML SYRUP UDCUP PO PRN (15:15)
[2019-12-03] MEDS ORDERED: ONDANSETRON HCL 4 MG TABLET PO PRN (15:15)
[2019-12-03] MEDS ORDERED: ACETAMINOPHEN 325 MG TABLET PO PRN (15:15)
[2019-12-03] MEDS ORDERED: MAGNESIUM HYDROXIDE SUSPENSION 30 ML UDCUP PO PRN (15:15)
[2019-12-03] MEDS ORDERED: LOPERAMIDE HCL 2 MG CAPSULE PO PRN (15:15)
[2019-12-03] MEDS ORDERED: NICOTINE 14 MG/24 HOUR PATCH TD PRN (15:15)
[2019-12-03] MEDS ORDERED: ALBUTEROL SULFATE HFA 90 MCG/PUFF 8 GM INHALER IH PRN (15:15)
[2019-12-03] MEDS ORDERED: MAG HYDROX/AL HYDROX/SIMETH ES 30 ML SUSPENSION UDCUP PO PRN (15:15)
[2019-12-03] MEDS ORDERED: CloNIDine HCL 0.1 MG TABLET PO PRN (15:15)
[2019-12-03] MEDS ORDERED: DOCUSATE SODIUM 100 MG CAPSULE PO PRN (15:15)
[2019-12-03] MEDS ORDERED: PETROLATUM,WHITE 28 GM JELLY TP PRN (15:15)
[2019-12-03] MEDS: SERTRALINE HCL 50 MG TABLET PO SCH (15:17)
[2019-12-03] MEDS: RisperiDONE 2 MG TABLET PO SCH ×2 (15:17→20:40)
[2019-12-03] MEDS: DIVALPROEX SODIUM 500 MG DR TABLET PO SCH ×2 (15:17→20:40)
[2019-12-03 16:13] VITALS: BP 137/88
[2019-12-03] MEDS: FERROUS SULFATE 325 MG EC TABLET PO SCH (16:28)
[2019-12-04 05:59] VITALS: BP 111/63
[2019-12-04] MEDS: FERROUS SULFATE 325 MG EC TABLET PO SCH ×2 (06:16→16:30)
[2019-12-04 08:00] VITALS: BP 100/55
[2019-12-04] MEDS: SERTRALINE HCL 50 MG TABLET PO SCH (08:11)
[2019-12-04] MEDS: DIVALPROEX SODIUM 500 MG DR TABLET PO SCH ×2 (08:11→20:33)
[2019-12-04] MEDS: RisperiDONE 2 MG TABLET PO SCH ×2 (08:11→20:33)
[2019-12-04 08:58] LABS: APPEARANCE,URINE CLEAR (CLEAR); BILIRUBIN,URINE NEGATIVE (NEGATIVE); GLUCOSE, URINE (UA) NEGATIVE (NEGATIVE); KETONES,URINE NEGATIVE (NEGATIVE); LEUKOCYTE ESTERASE ,URINE NEGATIVE (NEGATIVE); NITRATE,URINE NEGATIVE (NEGATIVE); PH,URINE 6.5 (5.0-8.0); PROTEIN,URINE NEGATIVE (NEGATIVE); UROBILINOGEN,URINE 0.2 mg/dL (<=1.0)
[2019-12-04 08:59] LABS: AMPHET/METH SCREEN,URINE NEGATIVE (NEGATIVE); BARBITURATE SCREEN, URINE NEGATIVE (NEGATIVE); BENZODIAZEPINES SCREEN,URINE NEGATIVE (NEGATIVE); CANNABINOID SCREEN,URINE NEGATIVE (NEGATIVE); COCAINE SCREEN,URINE NEGATIVE (NEGATIVE); METHADONE SCREEN, URINE NEGATIVE (NEGATIVE); OPIATE SCREEN,URINE NEGATIVE (NEGATIVE)
[2019-12-04 09:05] LABS: PHENCYCLIDINE SCREEN,URINE NEGATIVE (NEGATIVE)
[2019-12-04 09:19] LABS: OCCULT BLOOD,URINE SMALL (NEGATIVE)
[2019-12-04 09:20] LABS: BACTERIA,URINE None Seen /HPF (None Seen); SQUAMOUS EPITHELIAL CELL,UR Few /LPF (None Seen); WBC,URINE None Seen /HPF (0-5)
[2019-12-04 16:11] VITALS: BP 107/72
[2019-12-05 06:46] VITALS: BP 98/63
[2019-12-05] MEDS: FERROUS SULFATE 325 MG EC TABLET PO SCH ×2 (06:46→16:15)
[2019-12-05] MEDS: RisperiDONE 2 MG TABLET PO SCH ×2 (08:18→20:29)
[2019-12-05] MEDS: SERTRALINE HCL 50 MG TABLET PO SCH (08:18)
[2019-12-05] MEDS: DIVALPROEX SODIUM 500 MG DR TABLET PO SCH ×2 (08:18→20:29)
[2019-12-05 09:36] VITALS: BP 106/65
[2019-12-05 17:32] VITALS: BP 100/73
[2019-12-06 05:27] VITALS: BP 116/70
[2019-12-06] MEDS: FERROUS SULFATE 325 MG EC TABLET PO SCH ×2 (07:07→16:34)
[2019-12-06 08:46] VITALS: BP 115/63
[2019-12-06] MEDS: DIVALPROEX SODIUM 500 MG DR TABLET PO SCH ×2 (09:11→20:43)
[2019-12-06] MEDS: SERTRALINE HCL 50 MG TABLET PO SCH (09:11)
[2019-12-06] MEDS: RisperiDONE 2 MG TABLET PO SCH ×2 (09:11→20:43)
[2019-12-06] MEDS ORDERED: PALIPERIDONE PALMITATE 234 MG/1.5 ML SYRINGE IM ONE (11:00)
[2019-12-06 16:00] VITALS: BP 111/71
[2019-12-07 01:13] VITALS: BP 126/62
[2019-12-07] MEDS: FERROUS SULFATE 325 MG EC TABLET PO SCH ×2 (06:48→16:46)
[2019-12-07] MEDS: DIVALPROEX SODIUM 500 MG DR TABLET PO SCH ×2 (08:39→20:32)
[2019-12-07] MEDS: RisperiDONE 2 MG TABLET PO SCH ×2 (08:39→20:32)
[2019-12-07] MEDS: SERTRALINE HCL 50 MG TABLET PO SCH (08:39)
[2019-12-07 08:40] VITALS: BP 100/60
[2019-12-07 16:00] VITALS: BP 104/66
[2019-12-07 17:23] VITALS: BP 104/66
[2019-12-08 00:19] VITALS: BP 103/67
[2019-12-08] MEDS: FERROUS SULFATE 325 MG EC TABLET PO SCH ×2 (06:54→16:32)
[2019-12-08] MEDS: DIVALPROEX SODIUM 500 MG DR TABLET PO SCH ×2 (08:20→20:33)
[2019-12-08] MEDS: RisperiDONE 2 MG TABLET PO SCH ×2 (08:20→20:33)
[2019-12-08] MEDS: SERTRALINE HCL 50 MG TABLET PO SCH (08:20)
[2019-12-08 08:28] VITALS: BP 105/79
[2019-12-08 16:09] VITALS: BP 113/62
[2019-12-08] MEDS: IBUPROFEN 400 MG TABLET PO PRN (22:42)
[2019-12-08 22:43] VITALS: BP 113/72
[2019-12-09] MEDS: FERROUS SULFATE 325 MG EC TABLET PO SCH ×2 (06:11→16:34)
[2019-12-09 06:29] VITALS: BP 102/67
[2019-12-09] MEDS: RisperiDONE 2 MG TABLET PO SCH ×2 (08:17→20:28)
[2019-12-09] MEDS: SERTRALINE HCL 50 MG TABLET PO SCH (08:17)
[2019-12-09] MEDS: DIVALPROEX SODIUM 500 MG DR TABLET PO SCH ×2 (08:17→20:28)
[2019-12-09 08:37] VITALS: BP 108/61
[2019-12-09 16:47] VITALS: BP 112/74
[2019-12-09 21:17] VITALS: BP 113/70
[2019-12-09] MEDS: IBUPROFEN 400 MG TABLET PO PRN (21:23)
[2019-12-10 06:39] VITALS: BP 119/72
[2019-12-10] MEDS: FERROUS SULFATE 325 MG EC TABLET PO SCH ×2 (06:52→16:47)
[2019-12-10] MEDS: DIVALPROEX SODIUM 500 MG DR TABLET PO SCH ×2 (08:36→20:32)
[2019-12-10] MEDS: RisperiDONE 2 MG TABLET PO SCH ×2 (08:36→20:32)
[2019-12-10] MEDS: SERTRALINE HCL 50 MG TABLET PO SCH (08:36)
[2019-12-10] MEDS ORDERED: PALIPERIDONE PALMITATE 156 MG/ML SYRINGE IM ONE (09:00)
[2019-12-10 16:00] VITALS: BP 105/70
[2019-12-11 00:39] VITALS: BP 106/63
[2019-12-11] MEDS: FERROUS SULFATE 325 MG EC TABLET PO SCH ×2 (06:53→16:36)
[2019-12-11] MEDS: RisperiDONE 2 MG TABLET PO SCH ×2 (08:32→20:28)
[2019-12-11] MEDS: DIVALPROEX SODIUM 500 MG DR TABLET PO SCH ×2 (08:32→20:28)
[2019-12-11] MEDS: SERTRALINE HCL 50 MG TABLET PO SCH (08:32)
[2019-12-11 08:41] VITALS: BP 108/72
[2019-12-11 16:11] VITALS: BP 112/70
[2019-12-12 05:17] VITALS: BP 100/59
[2019-12-12] MEDS: FERROUS SULFATE 325 MG EC TABLET PO SCH ×2 (06:35→16:32)
[2019-12-12 08:21] VITALS: BP 99/58
[2019-12-12] MEDS: DIVALPROEX SODIUM 500 MG DR TABLET PO SCH ×2 (08:22→20:35)
[2019-12-12] MEDS: RisperiDONE 2 MG TABLET PO SCH ×2 (08:22→20:35)
[2019-12-12] MEDS: SERTRALINE HCL 50 MG TABLET PO SCH (08:22)
[2019-12-12 16:26] VITALS: BP 113/62
[2019-12-13 00:40] VITALS: BP 132/71
[2019-12-13] MEDS: FERROUS SULFATE 325 MG EC TABLET PO SCH ×2 (06:36→16:04)
[2019-12-13 08:39] VITALS: BP 113/71
[2019-12-13] MEDS: RisperiDONE 2 MG TABLET PO SCH ×2 (08:58→20:09)
[2019-12-13] MEDS: DIVALPROEX SODIUM 500 MG DR TABLET PO SCH ×2 (08:58→20:09)
[2019-12-13] MEDS: SERTRALINE HCL 50 MG TABLET PO SCH (08:58)
[2019-12-13 16:24] VITALS: BP 120/60
[2019-12-14 05:17] VITALS: BP 111/73
[2019-12-14] MEDS: FERROUS SULFATE 325 MG EC TABLET PO SCH ×2 (06:14→16:07)
[2019-12-14] MEDS: DIVALPROEX SODIUM 500 MG DR TABLET PO SCH ×2 (10:22→21:10)
[2019-12-14] MEDS: SERTRALINE HCL 50 MG TABLET PO SCH (10:22)
[2019-12-14] MEDS: RisperiDONE 2 MG TABLET PO SCH ×2 (10:22→21:10)
[2019-12-14 16:00] VITALS: BP 100/65
[2019-12-15 05:20] VITALS: BP 114/68
[2019-12-15] MEDS: FERROUS SULFATE 325 MG EC TABLET PO SCH ×2 (06:25→16:36)
[2019-12-15 08:44] VITALS: BP 136/71
[2019-12-15] MEDS: DIVALPROEX SODIUM 500 MG DR TABLET PO SCH ×2 (09:23→20:44)
[2019-12-15] MEDS: SERTRALINE HCL 50 MG TABLET PO SCH (09:23)
[2019-12-15] MEDS: RisperiDONE 2 MG TABLET PO SCH ×2 (09:23→20:44)
[2019-12-15 16:26] VITALS: BP 110/62
[2019-12-16 04:41] VITALS: BP 100/62
[2019-12-16] MEDS: FERROUS SULFATE 325 MG EC TABLET PO SCH ×2 (06:12→16:41)
[2019-12-16 08:14] VITALS: BP 103/64
[2019-12-16] MEDS: RisperiDONE 2 MG TABLET PO SCH ×2 (09:48→20:37)
[2019-12-16] MEDS: SERTRALINE HCL 50 MG TABLET PO SCH (09:48)
[2019-12-16] MEDS: DIVALPROEX SODIUM 500 MG DR TABLET PO SCH ×2 (09:48→20:37)
[2019-12-16 16:31] VITALS: BP 108/66
[2019-12-17 01:47] VITALS: BP 112/66
[2019-12-17] MEDS: FERROUS SULFATE 325 MG EC TABLET PO SCH ×2 (06:45→16:31)
[2019-12-17] MEDS: DIVALPROEX SODIUM 500 MG DR TABLET PO SCH ×2 (08:12→20:33)
[2019-12-17] MEDS: RisperiDONE 2 MG TABLET PO SCH ×2 (08:12→20:33)
[2019-12-17] MEDS: SERTRALINE HCL 50 MG TABLET PO SCH (08:12)
[2019-12-17 08:25] VITALS: BP 104/61
[2019-12-17 16:25] VITALS: BP 107/66
[2019-12-18 06:51] VITALS: BP 102/62
[2019-12-18] MEDS: FERROUS SULFATE 325 MG EC TABLET PO SCH ×2 (06:59→16:27)
[2019-12-18] MEDS: RisperiDONE 2 MG TABLET PO SCH ×2 (09:10→20:53)
[2019-12-18] MEDS: DIVALPROEX SODIUM 500 MG DR TABLET PO SCH ×2 (09:10→20:53)
[2019-12-18] MEDS: SERTRALINE HCL 50 MG TABLET PO SCH (09:10)
[2019-12-18 17:57] VITALS: BP 100/60
[2019-12-19] MEDS: FERROUS SULFATE 325 MG EC TABLET PO SCH ×2 (06:59→16:34)
[2019-12-19 08:38] VITALS: BP 104/61
[2019-12-19] MEDS: RisperiDONE 2 MG TABLET PO SCH ×2 (08:46→20:34)
[2019-12-19] MEDS: DIVALPROEX SODIUM 500 MG DR TABLET PO SCH ×2 (08:46→20:34)
[2019-12-19] MEDS: SERTRALINE HCL 50 MG TABLET PO SCH (08:46)
[2019-12-19 16:11] VITALS: BP 107/67
[2019-12-20 00:48] VITALS: BP 103/62
[2019-12-20] MEDS: FERROUS SULFATE 325 MG EC TABLET PO SCH ×2 (06:35→17:03)
[2019-12-20] MEDS: RisperiDONE 2 MG TABLET PO SCH ×2 (08:20→20:30)
[2019-12-20] MEDS: SERTRALINE HCL 50 MG TABLET PO SCH (08:20)
[2019-12-20] MEDS: DIVALPROEX SODIUM 500 MG DR TABLET PO SCH ×2 (08:20→20:30)
[2019-12-20 16:18] VITALS: BP 94/64
[2019-12-21 00:26] VITALS: BP 115/56
[2019-12-21] MEDS: FERROUS SULFATE 325 MG EC TABLET PO SCH ×2 (06:35→16:28)
[2019-12-21] MEDS: DIVALPROEX SODIUM 500 MG DR TABLET PO SCH ×2 (08:25→20:32)
[2019-12-21] MEDS: SERTRALINE HCL 50 MG TABLET PO SCH (08:25)
[2019-12-21] MEDS: RisperiDONE 2 MG TABLET PO SCH ×2 (08:25→20:32)
[2019-12-21 08:27] VITALS: BP 110/65
[2019-12-21 16:23] VITALS: BP 109/60
[2019-12-22 04:00] VITALS: BP 106/62
[2019-12-22] MEDS: FERROUS SULFATE 325 MG EC TABLET PO SCH (06:37)
[2019-12-22 08:35] VITALS: BP 102/57
[2019-12-22] MEDS: SERTRALINE HCL 50 MG TABLET PO SCH (08:51)
[2019-12-22] MEDS: DIVALPROEX SODIUM 500 MG DR TABLET PO SCH (08:51)
[2019-12-22] MEDS: RisperiDONE 2 MG TABLET PO SCH (08:51)
[2019-12-22] MEDS ORDERED: SERT50TA12 PO (09:47)
[2019-12-22] MEDS ORDERED: DIVA-78 PO (09:47)
[2019-12-22] MEDS ORDERED: PALI234D IM (09:47)
[2019-12-22] MEDS ORDERED: FERR-89 PO (10:50)
[2020-01-07] MEDS ORDERED: PALIPERIDONE PALMITATE 234 MG/1.5 ML SYRINGE IM SCH (09:00)
== END 2019-12-22 15:18 | disposition home or self-care (01) | DRG 885 ==
LOC: B2X 23:15
PROVIDERS: ADMIT Psychiatry & Neurology Child & Adolescent Psychiatry
DX: F25.0 Schizoaffective disorder, bipolar type (principal); D64.9 Anemia, unspecified; E83.51 Hypocalcemia; R10.13 Epigastric pain; G40.909 Epilepsy, unspecified, not intractable, without status epilepticus; Z79.899 Other long term (current) drug therapy; Z87.820 Personal history of traumatic brain injury; Z91.14 Patient's other noncompliance with medication regimen
CPT/HCPCS: 80307; 84436; 84443; 86592

== ENCOUNTER 2020-06-25 10:45 | Inpatient (IN) | payer MEDICARE, MEDICAID ==
[~2020-06-25] VITALS: Ht 157.5 cm; Wt 94.8 kg
[~2020-06-25 10:45] MED LIST changes: +DIVA-112 PO; -DIVA-78 PO; -SERT100T12 PO; +SERT50TA12 PO
[2020-06-25] MEDS ORDERED: HALOPERIDOL 5 MG TABLET PO PRN (13:30)
[2020-06-25] MEDS ORDERED: LORazepam 2 MG TABLET PO PRN (13:30)
[2020-06-25] MEDS ORDERED: ZOLPIDEM TARTRATE 10 MG TABLET PO PRN (13:30)
[2020-06-25 15:28] LABS: COVID AG,FIA SOURCE NASOPHARYNGEAL
[2020-06-25 17:29] VITALS: BP 104/61
[2020-06-25 18:11] VITALS: BP 110/71
[2020-06-25] MEDS ORDERED: INFLUENZA VIRUS VACCINE QVS 2020-21 (6MO+)/PF 60 MCG/0.5 ML SYRINGE IM ONE (20:00)
[2020-06-26 02:42] VITALS: BP 115/74
[2020-06-26 07:42] LABS: BASOPHILS % (AUTO) 0.4 % (0.0-2.0); EOSINOPHILS % (AUTO) 4.6 % (1.0-6.0); HEMATOCRIT 36.3 % (36-46); LYMPHOCYTES # (AUTO) 2.4 K/uL (1.0-4.8); LYMPHOCYTES % (AUTO) 35.2 % (22.0-44.0); MEAN CORPUSCULAR HGB CONC 33.1 G/dL (31.0-37.0); MEAN CORPUSCULAR VOLUME 85 fL (80-100); MONOCYTES # (AUTO) 0.4 K/uL (0.1-1.0); MONOCYTES % (AUTO) 5.4 % (2.0-9.0); NEUTROPHILS # (AUTO) 3.6 K/uL (1.8-7.7); NEUTROPHILS % (AUTO) 54.4 % (40.0-70.0); PLATELET COUNT (AUTO) 265 K/uL (150-450); RED BLOOD CELL COUNT(AUTO) 4.29 MIL/uL (4.00-5.20); RED CELL DISTRIBUTION WIDTH 12.9 % (11.5-14.5)
[2020-06-26 08:11] LABS: HEMOGLOBIN A1C 5.3 % (3.8-5.6)
[2020-06-26 08:23] LABS: ALANINE AMINOTRANSFERASE 18 U/L (12-78); ALBUMIN 3.2 g/dL (3.4-5.0); ALKALINE PHOSPHATASE 75 U/L (46-116); ANION GAP 8 mmol/L (8-16); ASPARTATE AMINOTRANSFERASE 13 U/L (15-37); BILIRUBIN,TOTAL 0.3 mg/dL (0.1-1.0); CALCIUM, TOTAL 8.4 mg/dL (8.8-10.5); CARBON DIOXIDE 26 mmol/L (22-29); CHLORIDE 108 mmol/L (98-107); CHOL/HDL RATIO 3.4 (3.9-5.7); CHOLESTEROL 171 mg/dL (131-200); CREATININE 0.62 mg/dL (0.60-1.30); FREE T4 (FREE THYROXINE) 0.95 ng/dL (0.76-1.46); GLOMERULAR FILTR. RATE CALC > 60 mL/min (>60); GLUCOSE,RANDOM 81 mg/dL (70-110); HCG,QUANTITATIVE < 1 mIU/mL (0-6); HDL CHOLESTEROL 51 mg/dL (40-60); LDL CHOL (CALC.) 95 mg/dL (0-130); POTASSIUM 4.4 mmol/L (3.5-5.1); SODIUM SERUM 142 mmol/L (136-145); THYROID STIMULATING HORMONE 0.91 uIU/mL (0.36-3.74); TOTAL PROTEIN, SERUM 6.3 g/dL (6.4-8.2); TRIGLYCERIDES 126 mg/dL (15-150); UREA NITROGEN, BLOOD 11 mg/dL (7-18)
[2020-06-26 10:54] VITALS: BP 109/66
[2020-06-26] MEDS: RisperiDONE 2 MG TABLET PO SCH ×2 (11:07→20:30)
[2020-06-26] MEDS: DIVALPROEX SODIUM 500 MG DR TABLET PO SCH ×2 (11:07→20:30)
[2020-06-26] MEDS: SERTRALINE HCL 50 MG TABLET PO SCH (11:07)
[2020-06-26 16:12] VITALS: BP 104/70
[2020-06-27 05:18] VITALS: BP 110/68
[2020-06-27] MEDS: DIVALPROEX SODIUM 500 MG DR TABLET PO SCH ×2 (08:45→20:12)
[2020-06-27] MEDS: RisperiDONE 2 MG TABLET PO SCH ×2 (08:45→20:12)
[2020-06-27] MEDS: SERTRALINE HCL 50 MG TABLET PO SCH (08:45)
[2020-06-27 09:50] VITALS: BP 110/63
[2020-06-27 16:20] VITALS: BP 105/61
[2020-06-28 01:57] VITALS: BP 108/62
[2020-06-28 08:32] VITALS: BP 122/62
[2020-06-28] MEDS: RisperiDONE 2 MG TABLET PO SCH ×2 (09:44→20:33)
[2020-06-28] MEDS: DIVALPROEX SODIUM 500 MG DR TABLET PO SCH ×2 (09:44→20:33)
[2020-06-28] MEDS: SERTRALINE HCL 50 MG TABLET PO SCH (09:44)
[2020-06-28 16:13] VITALS: BP 105/64
[2020-06-29 06:54] VITALS: BP 120/118
[2020-06-29 07:10] VITALS: BP 97/60
[2020-06-29 08:18] VITALS: BP 93/60
[2020-06-29 08:41] LABS: APPEARANCE,URINE CLEAR (CLEAR); BILIRUBIN,URINE NEGATIVE (NEGATIVE); GLUCOSE, URINE (UA) NEGATIVE (NEGATIVE); KETONES,URINE NEGATIVE (NEGATIVE); LEUKOCYTE ESTERASE ,URINE NEGATIVE (NEGATIVE); NITRATE,URINE NEGATIVE (NEGATIVE); OCCULT BLOOD,URINE NEGATIVE (NEGATIVE); PH,URINE 6.5 (5.0-8.0); PROTEIN,URINE NEGATIVE (NEGATIVE); UROBILINOGEN,URINE 0.2 mg/dL (<=1.0)
[2020-06-29 08:52] LABS: AMPHET/METH SCREEN,URINE NEGATIVE (NEGATIVE); BARBITURATE SCREEN, URINE NEGATIVE (NEGATIVE); BENZODIAZEPINES SCREEN,URINE NEGATIVE (NEGATIVE); CANNABINOID SCREEN,URINE NEGATIVE (NEGATIVE); COCAINE SCREEN,URINE NEGATIVE (NEGATIVE); METHADONE SCREEN, URINE NEGATIVE (NEGATIVE); OPIATE SCREEN,URINE NEGATIVE (NEGATIVE)
[2020-06-29 08:55] LABS: PHENCYCLIDINE SCREEN,URINE NEGATIVE (NEGATIVE)
[2020-06-29] MEDS: DIVALPROEX SODIUM 500 MG DR TABLET PO SCH ×2 (09:26→20:31)
[2020-06-29] MEDS: RisperiDONE 2 MG TABLET PO SCH ×2 (09:26→20:31)
[2020-06-29] MEDS: SERTRALINE HCL 50 MG TABLET PO SCH (09:26)
[2020-06-29 16:17] VITALS: BP 100/60
[2020-06-30 03:36] VITALS: BP 133/92
[2020-06-30 08:07] LABS: COVID AG,FIA SOURCE NASOPHARYNGEAL
[2020-06-30 08:13] VITALS: BP 132/89
[2020-06-30] MEDS: SERTRALINE HCL 50 MG TABLET PO SCH (08:59)
[2020-06-30] MEDS: RisperiDONE 2 MG TABLET PO SCH ×2 (08:59→20:34)
[2020-06-30] MEDS: DIVALPROEX SODIUM 500 MG DR TABLET PO SCH ×2 (08:59→20:34)
[2020-06-30 16:13] VITALS: BP 109/72
[2020-07-01 04:00] VITALS: BP 121/73
[2020-07-01] MEDS: SERTRALINE HCL 50 MG TABLET PO SCH (08:57)
[2020-07-01] MEDS: RisperiDONE 2 MG TABLET PO SCH ×2 (08:57→20:33)
[2020-07-01] MEDS: DIVALPROEX SODIUM 500 MG DR TABLET PO SCH ×2 (08:57→20:33)
[2020-07-01 09:27] VITALS: BP 112/67
[2020-07-01 16:18] VITALS: BP 107/68
[2020-07-02 01:15] VITALS: BP 114/66
[2020-07-02] MEDS: SERTRALINE HCL 50 MG TABLET PO SCH (08:24)
[2020-07-02] MEDS: RisperiDONE 2 MG TABLET PO SCH ×2 (08:24→21:02)
[2020-07-02] MEDS: DIVALPROEX SODIUM 500 MG DR TABLET PO SCH ×2 (08:24→21:01)
[2020-07-02 08:28] VITALS: BP 125/82
[2020-07-02] MEDS ORDERED: PALIPERIDONE PALMITATE 234 MG/1.5 ML SYRINGE IM ONE (09:00)
[2020-07-02 16:27] VITALS: BP 102/70
[2020-07-03 00:24] VITALS: BP 129/88
[2020-07-03 08:03] VITALS: BP 100/61
[2020-07-03] MEDS: SERTRALINE HCL 50 MG TABLET PO SCH (09:11)
[2020-07-03] MEDS: DIVALPROEX SODIUM 500 MG DR TABLET PO SCH ×2 (09:11→21:30)
[2020-07-03] MEDS: RisperiDONE 2 MG TABLET PO SCH ×2 (09:11→21:29)
[2020-07-03] MEDS ORDERED: PALI234D IM (12:27)
[2020-07-03 16:05] VITALS: BP 108/68
[2020-07-03] MEDS: HYPROMELLOSE 0.5% 15 ML OPHTHALMIC SOLUTION OU SCH (21:29)
[2020-07-04 08:26] VITALS: BP 118/62
[2020-07-04] MEDS: SERTRALINE HCL 50 MG TABLET PO SCH (08:59)
[2020-07-04] MEDS: DIVALPROEX SODIUM 500 MG DR TABLET PO SCH ×2 (08:59→20:32)
[2020-07-04] MEDS: RisperiDONE 2 MG TABLET PO SCH ×2 (08:59→20:32)
[2020-07-04] MEDS: HYPROMELLOSE 0.5% 15 ML OPHTHALMIC SOLUTION OU SCH ×2 (08:59→16:30)
[2020-07-04 16:12] VITALS: BP 120/68
[2020-07-05 00:57] VITALS: BP 102/61
[2020-07-05 08:21] VITALS: BP 131/85
[2020-07-05] MEDS: DIVALPROEX SODIUM 500 MG DR TABLET PO SCH ×2 (08:41→20:17)
[2020-07-05] MEDS: SERTRALINE HCL 50 MG TABLET PO SCH (08:41)
[2020-07-05] MEDS: RisperiDONE 2 MG TABLET PO SCH ×2 (08:41→20:18)
[2020-07-05] MEDS: HYPROMELLOSE 0.5% 15 ML OPHTHALMIC SOLUTION OU SCH ×2 (08:41→16:51)
[2020-07-05 16:06] VITALS: BP 120/67
[2020-07-06 00:13] VITALS: BP 112/70
[2020-07-06 08:08] VITALS: BP 103/64
[2020-07-06] MEDS ORDERED: PALIPERIDONE PALMITATE 156 MG/ML SYRINGE IM ONE (09:00)
[2020-07-06] MEDS: SERTRALINE HCL 50 MG TABLET PO SCH (09:08)
[2020-07-06] MEDS: RisperiDONE 2 MG TABLET PO SCH ×2 (09:08→20:28)
[2020-07-06] MEDS: DIVALPROEX SODIUM 500 MG DR TABLET PO SCH ×2 (09:08→20:28)
[2020-07-06] MEDS: HYPROMELLOSE 0.5% 15 ML OPHTHALMIC SOLUTION OU SCH ×2 (09:09→16:27)
[2020-07-06 16:05] VITALS: BP 119/69
[2020-07-07 07:09] VITALS: BP 115/68
[2020-07-07 08:42] VITALS: BP 109/66
[2020-07-07] MEDS: RisperiDONE 2 MG TABLET PO SCH ×2 (09:59→20:36)
[2020-07-07] MEDS: DIVALPROEX SODIUM 500 MG DR TABLET PO SCH ×2 (09:59→20:36)
[2020-07-07] MEDS: SERTRALINE HCL 50 MG TABLET PO SCH (09:59)
[2020-07-07] MEDS: HYPROMELLOSE 0.5% 15 ML OPHTHALMIC SOLUTION OU SCH ×2 (10:00→16:17)
[2020-07-07 16:10] VITALS: BP 105/66
[2020-07-08 06:17] VITALS: BP 112/89
[2020-07-08] MEDS: RisperiDONE 2 MG TABLET PO SCH ×2 (08:44→20:33)
[2020-07-08] MEDS: HYPROMELLOSE 0.5% 15 ML OPHTHALMIC SOLUTION OU SCH ×2 (08:44→16:31)
[2020-07-08] MEDS: DIVALPROEX SODIUM 500 MG DR TABLET PO SCH ×2 (08:44→20:33)
[2020-07-08] MEDS: SERTRALINE HCL 50 MG TABLET PO SCH (08:44)
[2020-07-08 09:03] VITALS: BP 124/76
[2020-07-08 09:34] LABS: COVID AG,FIA SOURCE NASAL SWAB
[2020-07-08 16:48] VITALS: BP 125/76
[2020-07-09 08:09] VITALS: BP 108/65
[2020-07-09] MEDS: DIVALPROEX SODIUM 500 MG DR TABLET PO SCH ×2 (08:47→20:32)
[2020-07-09] MEDS: SERTRALINE HCL 50 MG TABLET PO SCH (08:47)
[2020-07-09] MEDS: RisperiDONE 2 MG TABLET PO SCH ×2 (08:47→20:31)
[2020-07-09] MEDS: HYPROMELLOSE 0.5% 15 ML OPHTHALMIC SOLUTION OU SCH ×2 (10:25→16:33)
[2020-07-09 16:11] VITALS: BP 119/81
[2020-07-10] MEDS ORDERED: RISP2TAB76 PO (08:04)
[2020-07-10] MEDS ORDERED: HYPR15DR23 OU (08:06)
[2020-07-10 08:45] VITALS: BP 99/59
[2020-07-10] MEDS: SERTRALINE HCL 50 MG TABLET PO SCH (12:22)
[2020-07-10] MEDS: HYPROMELLOSE 0.5% 15 ML OPHTHALMIC SOLUTION OU SCH ×2 (12:22→16:33)
[2020-07-10] MEDS: DIVALPROEX SODIUM 500 MG DR TABLET PO SCH ×2 (12:22→20:59)
[2020-07-10] MEDS: RisperiDONE 2 MG TABLET PO SCH ×2 (12:22→20:59)
[2020-07-10 16:10] VITALS: BP 120/77
[2020-07-11] MEDS: RisperiDONE 2 MG TABLET PO SCH ×2 (08:04→20:12)
[2020-07-11] MEDS: DIVALPROEX SODIUM 500 MG DR TABLET PO SCH ×2 (08:04→20:18)
[2020-07-11] MEDS: SERTRALINE HCL 50 MG TABLET PO SCH (08:04)
[2020-07-11] MEDS: HYPROMELLOSE 0.5% 15 ML OPHTHALMIC SOLUTION OU SCH ×2 (08:05→16:52)
[2020-07-11 13:02] VITALS: BP 99/58
[2020-07-11 16:14] VITALS: BP 107/66
[2020-07-12 05:57] VITALS: BP 112/72
[2020-07-12] MEDS: DIVALPROEX SODIUM 500 MG DR TABLET PO SCH (08:35)
[2020-07-12] MEDS: RisperiDONE 2 MG TABLET PO SCH (08:35)
[2020-07-12] MEDS: HYPROMELLOSE 0.5% 15 ML OPHTHALMIC SOLUTION OU SCH (09:07)
[2020-07-12] MEDS: SERTRALINE HCL 50 MG TABLET PO SCH (09:24)
[2020-08-03] MEDS ORDERED: PALIPERIDONE PALMITATE 234 MG/1.5 ML SYRINGE IM SCH (09:00)
== END 2020-07-12 09:30 | disposition home or self-care (01) | DRG 885 ==
LOC: B2X 17:54
DX: F25.0 Schizoaffective disorder, bipolar type (principal); E88.09 Other disorders of plasma-protein metabolism, not elsewhere classified; D64.9 Anemia, unspecified; G40.909 Epilepsy, unspecified, not intractable, without status epilepticus; Z87.820 Personal history of traumatic brain injury; Z59.0 Homelessness; R68.89 Other general symptoms and signs; Z91.14 Patient's other noncompliance with medication regimen; Z79.899 Other long term (current) drug therapy; Z20.828 Contact with and (suspected) exposure to other viral communicable diseases; Z28.21 Immunization not carried out because of patient refusal
CPT/HCPCS: 80307; 83036; 84436; 84439; 84443; 86592; 87426; 90686

== ENCOUNTER 2020-07-22 20:11 | Inpatient (IN) | payer MEDICARE, MEDICAID ==
[~2020-07-22] VITALS: Ht 157.5 cm; Wt 98.0 kg
[~2020-07-22 20:11] MED LIST changes: -FERR-89 PO; +HYPR15DR23 OU; +RISP2TAB76 PO
[2020-07-22] MEDS ORDERED: ZOLPIDEM TARTRATE 10 MG TABLET PO PRN (23:15)
[2020-07-22] MEDS ORDERED: QUEtiapine FUMARATE 100 MG TABLET PO PRN (23:15)
[2020-07-22] MEDS ORDERED: LORazepam 2 MG TABLET PO PRN (23:15)
[2020-07-22 23:54] LABS: ANION GAP 7 mmol/L (8-16); CALCIUM, TOTAL 8.8 mg/dL (8.8-10.5); CARBON DIOXIDE 28 mmol/L (22-29); CHLORIDE 105 mmol/L (98-107); CREATININE 0.75 mg/dL (0.60-1.30); GLOMERULAR FILTR. RATE CALC > 60 mL/min (>60); GLUCOSE,RANDOM 97 mg/dL (70-110); POTASSIUM 4.9 mmol/L (3.5-5.1); SODIUM SERUM 140 mmol/L (136-145); UREA NITROGEN, BLOOD 15 mg/dL (7-18)
[2020-07-23 00:32] LABS: COVID AG,FIA SOURCE NASOPHARYNGEAL
[2020-07-23 00:52] LABS: ALANINE AMINOTRANSFERASE 30 U/L (12-78); ALBUMIN 3.2 g/dL (3.4-5.0); ALKALINE PHOSPHATASE 122 U/L (46-116); ASPARTATE AMINOTRANSFERASE 29 U/L (15-37); BILIRUBIN,TOTAL 0.2 mg/dL (0.1-1.0); HCG,QUANTITATIVE < 1 mIU/mL (0-6); TOTAL PROTEIN, SERUM 7.1 g/dL (6.4-8.2)
[2020-07-23 01:35] LABS: BASOPHILS % (AUTO) 1.1 % (0.0-2.0); HEMATOCRIT 36.1 % (36-46); LYMPHOCYTES # (AUTO) 2.3 K/uL (1.0-4.8); LYMPHOCYTES % (AUTO) 28.8 % (22.0-44.0); MEAN CORPUSCULAR HEMOGLOBIN 27.9 pg (26.0-34.0); MEAN CORPUSCULAR HGB CONC 33.1 G/dL (31.0-37.0); MEAN CORPUSCULAR VOLUME 84 fL (80-100); MONOCYTES # (AUTO) 0.6 K/uL (0.1-1.0); MONOCYTES % (AUTO) 7.5 % (2.0-9.0); NEUTROPHILS # (AUTO) 4.6 K/uL (1.8-7.7); NEUTROPHILS % (AUTO) 56.6 % (40.0-70.0); PLATELET COUNT (AUTO) 251 K/uL (150-450); RED BLOOD CELL COUNT(AUTO) 4.28 MIL/uL (4.00-5.20); RED CELL DISTRIBUTION WIDTH 13.1 % (11.5-14.5)
[2020-07-23 02:05] LABS: CHOL/HDL RATIO 3.1 (3.9-5.7); CHOLESTEROL 202 mg/dL (131-200); HDL CHOLESTEROL 66 mg/dL (40-60); LDL CHOL (CALC.) 114 mg/dL (0-130); TRIGLYCERIDES 111 mg/dL (15-150)
[2020-07-23 03:30] VITALS: BP 122/76
[2020-07-23] MEDS ORDERED: INFLUENZA VIRUS VACCINE QVS 2020-21 (6MO+)/PF 60 MCG/0.5 ML SYRINGE IM ONE (03:45)
[2020-07-23 07:02] LABS: BILIRUBIN,URINE NEGATIVE (NEGATIVE); GLUCOSE, URINE (UA) NEGATIVE (NEGATIVE); KETONES,URINE NEGATIVE (NEGATIVE); LEUKOCYTE ESTERASE ,URINE SMALL (NEGATIVE); NITRATE,URINE NEGATIVE (NEGATIVE); OCCULT BLOOD,URINE NEGATIVE (NEGATIVE); PROTEIN,URINE NEGATIVE (NEGATIVE); UROBILINOGEN,URINE 0.2 mg/dL (<=1.0)
[2020-07-23] MEDS ORDERED: MAG HYDROX/AL HYDROX/SIMETH ES 30 ML SUSPENSION UDCUP PO PRN (07:15)
[2020-07-23] MEDS ORDERED: IBUPROFEN 400 MG TABLET PO PRN (07:15)
[2020-07-23] MEDS ORDERED: NICOTINE 14 MG/24 HOUR PATCH TD PRN (07:15)
[2020-07-23] MEDS ORDERED: DOCUSATE SODIUM 100 MG CAPSULE PO PRN (07:15)
[2020-07-23] MEDS ORDERED: LOPERAMIDE HCL 2 MG CAPSULE PO PRN (07:15)
[2020-07-23] MEDS ORDERED: ALBUTEROL SULFATE HFA 90 MCG/PUFF 8 GM INHALER IH PRN (07:15)
[2020-07-23] MEDS ORDERED: ACETAMINOPHEN 325 MG TABLET PO PRN (07:15)
[2020-07-23] MEDS ORDERED: MAGNESIUM HYDROXIDE SUSPENSION 30 ML UDCUP PO PRN (07:15)
[2020-07-23] MEDS ORDERED: ONDANSETRON HCL 4 MG TABLET PO PRN (07:15)
[2020-07-23] MEDS ORDERED: GuaiFENesin/D-METHORPHAN [SUGAR-FREE] 200-20MG/10 ML SYRUP UDCUP PO PRN (07:15)
[2020-07-23] MEDS ORDERED: PETROLATUM,WHITE 28 GM JELLY TP PRN (07:15)
[2020-07-23] MEDS ORDERED: CloNIDine HCL 0.1 MG TABLET PO PRN (07:15)
[2020-07-23 08:49] LABS: APPEARANCE,URINE HAZY (CLEAR)
[2020-07-23 08:50] LABS: BACTERIA,URINE Many /HPF (None Seen); RBC,URINE 0-2 /HPF (0-2); SQUAMOUS EPITHELIAL CELL,UR Moderate /LPF (None Seen)
[2020-07-23] MEDS: HYPROMELLOSE 0.5% 15 ML OPHTHALMIC SOLUTION OU SCH ×2 (09:18→17:00)
[2020-07-23] MEDS: DIVALPROEX SODIUM 500 MG DR TABLET PO SCH ×2 (12:43→20:37)
[2020-07-23] MEDS: SERTRALINE HCL 50 MG TABLET PO SCH (12:43)
[2020-07-23 12:55] VITALS: BP 108/64
[2020-07-23 16:20] VITALS: BP 140/69
[2020-07-23 19:27] VITALS: BP 102/55
[2020-07-24] MEDS: CEPHALEXIN MONOHYDRATE 500 MG CAPSULE PO SCH ×3 (00:02→17:30)
[2020-07-24 05:24] VITALS: BP 125/74
[2020-07-24 08:17] VITALS: BP 111/63
[2020-07-24] MEDS: DIVALPROEX SODIUM 500 MG DR TABLET PO SCH ×2 (10:29→20:12)
[2020-07-24] MEDS: SERTRALINE HCL 50 MG TABLET PO SCH (10:29)
[2020-07-24] MEDS: HYPROMELLOSE 0.5% 15 ML OPHTHALMIC SOLUTION OU SCH ×2 (12:15→17:30)
[2020-07-24 16:24] VITALS: BP 105/63
[2020-07-25] MEDS: CEPHALEXIN MONOHYDRATE 500 MG CAPSULE PO SCH ×4 (01:15→23:53)
[2020-07-25 08:00] VITALS: BP 113/73
[2020-07-25] MEDS: DIVALPROEX SODIUM 500 MG DR TABLET PO SCH ×2 (08:46→20:17)
[2020-07-25] MEDS: HYPROMELLOSE 0.5% 15 ML OPHTHALMIC SOLUTION OU SCH ×2 (08:46→16:01)
[2020-07-25] MEDS: SERTRALINE HCL 50 MG TABLET PO SCH (08:46)
[2020-07-25 16:17] VITALS: BP 117/76
[2020-07-26 08:00] VITALS: BP 99/77
[2020-07-26] MEDS: HYPROMELLOSE 0.5% 15 ML OPHTHALMIC SOLUTION OU SCH ×2 (08:12→16:29)
[2020-07-26] MEDS: SERTRALINE HCL 50 MG TABLET PO SCH (08:12)
[2020-07-26] MEDS: CEPHALEXIN MONOHYDRATE 500 MG CAPSULE PO SCH ×3 (08:12→23:56)
[2020-07-26] MEDS: DIVALPROEX SODIUM 500 MG DR TABLET PO SCH ×2 (08:12→20:49)
[2020-07-26 16:00] VITALS: BP 121/72
[2020-07-27 08:50] VITALS: BP 106/53
[2020-07-27] MEDS: CEPHALEXIN MONOHYDRATE 500 MG CAPSULE PO SCH ×3 (09:09→23:46)
[2020-07-27] MEDS: HYPROMELLOSE 0.5% 15 ML OPHTHALMIC SOLUTION OU SCH ×2 (09:09→16:38)
[2020-07-27] MEDS: DIVALPROEX SODIUM 500 MG DR TABLET PO SCH ×2 (09:09→20:20)
[2020-07-27] MEDS: SERTRALINE HCL 50 MG TABLET PO SCH (09:10)
[2020-07-27 17:57] VITALS: BP 111/71
[2020-07-28] MEDS: DIVALPROEX SODIUM 500 MG DR TABLET PO SCH ×2 (08:21→20:19)
[2020-07-28] MEDS: SERTRALINE HCL 50 MG TABLET PO SCH (08:22)
[2020-07-28] MEDS: HYPROMELLOSE 0.5% 15 ML OPHTHALMIC SOLUTION OU SCH ×2 (08:22→16:04)
[2020-07-28] MEDS: CEPHALEXIN MONOHYDRATE 500 MG CAPSULE PO SCH ×3 (08:22→23:47)
[2020-07-28 08:51] VITALS: BP 120/71
[2020-07-28 13:55] LABS: COVID AG,FIA SOURCE NASOPHARYNGEAL
[2020-07-28 16:00] VITALS: BP 111/68
[2020-07-29 08:00] VITALS: BP 95/68
[2020-07-29] MEDS: DIVALPROEX SODIUM 500 MG DR TABLET PO SCH ×2 (08:09→20:28)
[2020-07-29] MEDS: CEPHALEXIN MONOHYDRATE 500 MG CAPSULE PO SCH ×3 (08:09→23:33)
[2020-07-29] MEDS: SERTRALINE HCL 50 MG TABLET PO SCH (08:09)
[2020-07-29] MEDS: HYPROMELLOSE 0.5% 15 ML OPHTHALMIC SOLUTION OU SCH ×2 (08:10→16:15)
[2020-07-29 16:00] VITALS: BP 100/56
[2020-07-30 09:00] VITALS: BP 107/60
[2020-07-30] MEDS: SERTRALINE HCL 50 MG TABLET PO SCH (09:11)
[2020-07-30] MEDS: CEPHALEXIN MONOHYDRATE 500 MG CAPSULE PO SCH ×3 (09:11→23:53)
[2020-07-30] MEDS: DIVALPROEX SODIUM 500 MG DR TABLET PO SCH ×2 (09:11→20:29)
[2020-07-30] MEDS: HYPROMELLOSE 0.5% 15 ML OPHTHALMIC SOLUTION OU SCH ×2 (09:12→16:42)
[2020-07-30 16:01] VITALS: BP 109/66
[2020-07-31] MEDS: HYPROMELLOSE 0.5% 15 ML OPHTHALMIC SOLUTION OU SCH ×2 (08:28→16:51)
[2020-07-31] MEDS: CEPHALEXIN MONOHYDRATE 500 MG CAPSULE PO SCH ×2 (08:28→16:02)
[2020-07-31] MEDS: SERTRALINE HCL 50 MG TABLET PO SCH (08:28)
[2020-07-31] MEDS: DIVALPROEX SODIUM 500 MG DR TABLET PO SCH ×2 (08:28→20:27)
[2020-07-31 08:52] VITALS: BP 114/62
[2020-07-31 16:12] VITALS: BP 103/65
[2020-08-01] MEDS: CEPHALEXIN MONOHYDRATE 500 MG CAPSULE PO SCH ×4 (00:08→23:39)
[2020-08-01] MEDS: DIVALPROEX SODIUM 500 MG DR TABLET PO SCH ×2 (08:33→20:12)
[2020-08-01] MEDS: HYPROMELLOSE 0.5% 15 ML OPHTHALMIC SOLUTION OU SCH ×2 (08:33→16:29)
[2020-08-01] MEDS: SERTRALINE HCL 50 MG TABLET PO SCH (08:33)
[2020-08-01 09:51] VITALS: BP 113/69
[2020-08-01 16:04] VITALS: BP 103/63
[2020-08-02] MEDS: SERTRALINE HCL 50 MG TABLET PO SCH (08:43)
[2020-08-02] MEDS: HYPROMELLOSE 0.5% 15 ML OPHTHALMIC SOLUTION OU SCH (08:43)
[2020-08-02] MEDS: DIVALPROEX SODIUM 500 MG DR TABLET PO SCH (08:43)
[2020-08-02] MEDS: CEPHALEXIN MONOHYDRATE 500 MG CAPSULE PO SCH (08:44)
[2020-08-02 09:42] VITALS: BP 100/58
[2020-08-02] MEDS ORDERED: SERT50TA12 PO (09:54)
[2020-08-02] MEDS ORDERED: DIVA-112 PO (09:54)
[2020-08-02] MEDS ORDERED: PALI234D IM (09:54)
[2020-08-02] MEDS ORDERED: PALIPERIDONE PALMITATE 234 MG/1.5 ML SYRINGE IM SCH (10:15)
[2020-08-02] MEDS ORDERED: CEPH500 PO (12:59)
[2020-08-03] MEDS ORDERED: PALIPERIDONE PALMITATE 234 MG/1.5 ML SYRINGE IM SCH (09:00)
== END 2020-08-02 16:15 | disposition home or self-care (01) | DRG 885 ==
LOC: EMS 20:11 → UNDOADMIN 23:10 → 3EI 23:10
DX: F25.0 Schizoaffective disorder, bipolar type (principal); N39.0 Urinary tract infection, site not specified; Z79.899 Other long term (current) drug therapy; Z59.0 Homelessness; E78.5 Hyperlipidemia, unspecified; G40.909 Epilepsy, unspecified, not intractable, without status epilepticus; R45.850 Homicidal ideations; Z20.822 Contact with and (suspected) exposure to COVID-19; Z87.820 Personal history of traumatic brain injury
CPT/HCPCS: 87081; 87086; 87426; G0480

== ENCOUNTER 2025-05-06 11:07 | Inpatient (IN) | payer OTHER, MEDICAID ==
[~2025-05-06] VITALS: Ht 165.1 cm; Wt 99.4 kg
[~2025-05-06 11:07] MED LIST changes: +CEPH-558 PO; -RISP2TAB76 PO; +SERT-439 PO; -SERT50TA12 PO
[2025-05-06 18:43] VITALS: BP 139/98; PULSE 98; RESP 18; TEMP 97.2; O2SAT 98
[2025-05-06 20:29] VITALS: BP 114/84; PULSE 84; RESP 18; TEMP 98; O2SAT 98
[2025-05-07 08:30] VITALS: BP 119/84; PULSE 96; RESP 18; TEMP 97.2; O2SAT 99
[2025-05-07 08:43] LABS: PLATELET COUNT (AUTO) 316 K/uL (150-450); RED BLOOD CELL COUNT(AUTO) 4.94 MIL/uL (4.00-5.20); RED CELL DISTRIBUTION WIDTH 15.6 % (11.5-14.5); WHITE BLOOD COUNT (AUTO) 5.7 K/uL (4.5-11.0)
[2025-05-07 09:06] LABS: ASPARTATE AMINOTRANSFERASE 13 U/L (15-37); CALCIUM, TOTAL 8.8 mg/dL (8.8-10.5); CHOL/HDL RATIO 4.0 (3.9-5.7); CREATININE 0.55 mg/dL (0.60-1.30); GLOMERULAR FILTR. RATE CALC > 60 mL/min (>60); GLUCOSE,RANDOM 93 mg/dL (70-110); HCG,QUANTITATIVE < 1 mIU/mL (0-6); LDL CHOL (CALC.) 134 mg/dL (0-130); SODIUM SERUM 140 mmol/L (136-145); TOTAL PROTEIN, SERUM 7.8 g/dL (6.4-8.2); UREA NITROGEN, BLOOD 8 mg/dL (7-18)
[2025-05-07] MEDS ORDERED: OMEPRAZOLE 20 MG CAPSULE PO PRN (09:30)
[2025-05-07] MEDS ORDERED: LOPERAMIDE HCL 2 MG CAPSULE PO PRN (09:30)
[2025-05-07] MEDS ORDERED: BACITRACIN 28 GM OINTMENT TP PRN (09:30)
[2025-05-07] MEDS ORDERED: IBUPROFEN 600 MG TABLET PO PRN (09:30)
[2025-05-07] MEDS ORDERED: ACETAMINOPHEN 325 MG TABLET PO PRN (09:30)
[2025-05-07] MEDS ORDERED: MAGNESIUM HYDROXIDE SUSPENSION 30 ML UDCUP PO PRN (09:30)
[2025-05-07] MEDS ORDERED: ALBUTEROL SULFATE HFA 90 MCG/PUFF 8 GM INHALER IH PRN (09:30)
[2025-05-07] MEDS ORDERED: PETROLATUM,WHITE 28 GM JELLY TP PRN (09:30)
[2025-05-07] MEDS ORDERED: MAG HYDROX/ALUMINUM HYD/SIMETH ES 30 ML SUSPENSION UDCUP PO PRN (09:30)
[2025-05-07] MEDS ORDERED: DOCUSATE SODIUM 100 MG CAPSULE PO PRN (09:30)
[2025-05-07] MEDS ORDERED: BENZOCAINE/MENTHOL [CEPACOL] LOZENGE PO PRN (09:30)
[2025-05-07 09:31] LABS: APPEARANCE,URINE CLEAR (CLEAR); GLUCOSE, URINE (UA) NEGATIVE (NEGATIVE); LEUKOCYTE ESTERASE ,URINE MODERATE (NEGATIVE); NITRATE,URINE NEGATIVE (NEGATIVE); OCCULT BLOOD,URINE NEGATIVE (NEGATIVE); PH,URINE DRUG SCREEN 7.0 (5.0-8.0); SPECIFIC GRAVITIY, URINE 1.013 (1.003-1.030)
[2025-05-07 09:37] LABS: SQUAMOUS EPITHELIAL CELL,UR Few /LPF (None Seen)
[2025-05-07 09:52] LABS: ALCOHOL, URINE DRUG SCREEN NEGATIVE (NEGATIVE); AMPHET/METH SCREEN,URINE NEGATIVE (NEGATIVE); BARBITURATE SCREEN, URINE NEGATIVE (NEGATIVE); CANNABINOID SCREEN,URINE NEGATIVE (NEGATIVE); COCAINE SCREEN,URINE NEGATIVE (NEGATIVE); METHADONE SCREEN, URINE NEGATIVE (NEGATIVE)
[2025-05-07] MEDS: OMEGA-3/DHA/EPA/FISH OIL 1,000 MG CAPSULE PO SCH (10:01)
[2025-05-07] MEDS: DIVALPROEX SODIUM 500 MG DR TABLET PO SCH (10:01)
[2025-05-07] MEDS: ZOLPIDEM TARTRATE 10 MG TABLET PO PRN (21:30)
[2025-05-08 01:07] LABS: HEPATITIS C AB (EIA) Non Reactive (Non Reactive)
[2025-05-08 08:17] VITALS: RESP 18
[2025-05-08] MEDS: NITROFURANTOIN MONOHYD/M-CRYST 100 MG CAPSULE [MACROBID] PO SCH (09:35)
[2025-05-08 20:23] VITALS: BP 109/83; PULSE 84; RESP 18; TEMP 97.2; O2SAT 99
[2025-05-09 08:18] VITALS: BP 122/83; PULSE 94; RESP 16; TEMP 98; O2SAT 98
[2025-05-09 21:11] VITALS: BP 125/77; PULSE 75; RESP 18; TEMP 98.6; O2SAT 99
[2025-05-10 08:09] VITALS: BP 107/71; PULSE 83; RESP 18; TEMP 97.1; O2SAT 100
[2025-05-10 20:27] VITALS: BP 120/69; PULSE 85; RESP 16; TEMP 97.7; O2SAT 100
[2025-05-11 08:19] VITALS: BP 115/79; PULSE 99; RESP 16; TEMP 97.6; O2SAT 99
[2025-05-11] MEDS: ONDANSETRON 4 MG TABLET PO PRN (19:37)
[2025-05-11 20:09] VITALS: BP 122/89; PULSE 89; RESP 17; TEMP 98; O2SAT 99
[2025-05-12 08:11] VITALS: BP 110/62; PULSE 100; RESP 16; TEMP 97.6; O2SAT 98
[2025-05-12 20:56] VITALS: BP 147/79; PULSE 93; RESP 18; TEMP 97.8; O2SAT 100
[2025-05-13 08:21] VITALS: BP 117/66; PULSE 80; RESP 16; TEMP 98.6; O2SAT 100
[2025-05-13 20:11] VITALS: BP 120/75; PULSE 83; RESP 17; TEMP 98.1; O2SAT 99
[2025-05-14 08:05] VITALS: BP 119/83; PULSE 82; RESP 16; TEMP 97.6; O2SAT 100
[2025-05-14 20:04] VITALS: BP 122/70; PULSE 91; RESP 18; TEMP 97.9; O2SAT 100
[2025-05-15] MEDS: PALIPERIDONE PALMITATE 234 MG/1.5 ML SYRINGE IM SCH (08:21)
[2025-05-15 08:23] VITALS: BP 146/66; PULSE 94; RESP 17; TEMP 97.4; O2SAT 100
[2025-05-15 20:11] VITALS: BP 118/64; PULSE 78; RESP 18; TEMP 98; O2SAT 100
[2025-05-16 08:17] VITALS: BP 130/72; PULSE 80; RESP 16; TEMP 97.6; O2SAT 97
[2025-05-16 20:12] VITALS: BP 130/85; PULSE 85; RESP 17; TEMP 98.1; O2SAT 100
[2025-05-17 08:09] VITALS: BP 126/81; PULSE 84; RESP 16; TEMP 98.6; O2SAT 99
[2025-05-17 20:08] VITALS: BP 113/80; PULSE 85; RESP 17; TEMP 97.9; O2SAT 99
[2025-05-18 08:07] VITALS: BP 115/83; PULSE 100; RESP 16; TEMP 97.9; O2SAT 100
[2025-05-18] MEDS ORDERED: PHENYLEPHRINE/SHK LV/MIN OIL/PET 57 GM OINTMENT TP PRN (09:00)
[2025-05-18] MEDS ORDERED: DIVA-112 PO (09:58)
== END 2025-05-18 18:38 | disposition home or self-care (01) | DRG 885 ==
LOC: B3A 14:13
PROVIDERS: ADMIT Psychiatry & Neurology Psychiatry; ATTEND Psychiatry & Neurology Psychiatry
DX: F25.9 Schizoaffective disorder, unspecified (principal); S06.9XAA Unspecified intracranial injury with loss of consciousness status unknown, initial encounter; G40.909 Epilepsy, unspecified, not intractable, without status epilepticus; E78.5 Hyperlipidemia, unspecified; G47.00 Insomnia, unspecified; E66.9 Obesity, unspecified; F41.9 Anxiety disorder, unspecified; X58.XXXA Exposure to other specified factors, initial encounter; Y93.89 Activity, other specified; Y92.89 Other specified places as the place of occurrence of the external cause; Y99.8 Other external cause status; Z68.36 Body mass index [BMI] 36.0-36.9, adult
CPT/HCPCS: 80053; 80061; 80307; 81001; 83036; 84436; 84439; 84443; 84702; 85025; 86803; 87086; 87340; Q0162